=== PATIENT | male | born 1945 | race Caucasian/White ===

== ENCOUNTER → 2017-09-11 16:49 | Outpatient (CLI) | payer OTHER, SELFPAY ==
--- NOTE | 2017-09-11 16:57 | DI.RAD.S_ITS ---
PROCEDURE: XR KNEE LT 3V INDICATIONS: BILATERAL KNEE PAIN TECHNIQUE: 3 views of the knee were acquired. COMPARISON: None. FINDINGS: Bones: No fractures or dislocations. No suspicious bony lesions. Soft tissues: No joint effusion. No suspicious soft tissue calcifications. Mild chondrocalcinosis is noted involving the medial and lateral meniscus, and there is associated mild medial compartment joint width narrowing. IMPRESSION: Mild medial compartment degenerative osteoarthritis, mild chondrocalcinosis involving each meniscus. No trauma found. Dictated by: Carlos Dent M.D. on 09/12/2017 at 9:00 Approved by: Carlos Dent M.D. on 09/12/2017 at 9:02
--- NOTE | 2017-09-11 17:02 | DI.RAD.S_ITS ---
PROCEDURE: XR KNEE RT 3V INDICATIONS: BILATERAL KNEE PAIN TECHNIQUE: 3 views of the knee were acquired. COMPARISON: None. FINDINGS: Bones: No fractures or dislocations. No suspicious bony lesions. Soft tissues: No joint effusion. No suspicious soft tissue calcifications. The moderate chondrocalcinosis present it is associated with mild medial compartment joint width narrowing. IMPRESSION: No trauma found. Moderate chondrocalcinosis, medial compartment mild joint width narrowing. Dictated by: Carlos Dent M.D. on 09/12/2017 at 9:02 Approved by: Carlos Dent M.D. on 09/12/2017 at 9:03
== END ==
PROVIDERS: PCP Family Medicine; Visit Provider Family Medicine
DX: M17.0 Bilateral primary osteoarthritis of knee (principal); M11.261 Other chondrocalcinosis, right knee
CPT/HCPCS: 73562

== ENCOUNTER → 2017-10-24 10:28 | Outpatient (CLI) | payer OTHER, SELFPAY ==
--- NOTE | 2017-10-24 | DI.US.S_ITS ---
PROCEDURE: US ABD AORTA ANEURYSM SCREEN INDICATIONS: AORTA SCREENING TECHNIQUE: Real time scanning was performed of the aorta and iliac arteries, with image documentation. COMPARISON: None. FINDINGS: Aorta: Proximal aortic diameter measures 2.2 cm. Mid-aorta measures 1.9 cm. Distal aortic diameter is 1.6 cm. Iliac arteries: Right common iliac artery measures 0.8 cm. Left common iliac artery measures 0.7 cm. IMPRESSION: Negative for aneurysm. Atheromatous plaques. Dictated by: Fred Larson M.D. on 10/24/2017 at 11:33 Approved by: Fred Larson M.D. on 10/24/2017 at 11:34
== END ==
PROVIDERS: PCP Family Medicine; Visit Provider Family Medicine
DX: Z13.6 Encounter for screening for cardiovascular disorders (principal)
CPT/HCPCS: 76706

== ENCOUNTER → 2017-11-07 14:09 | Outpatient (CLI) | payer OTHER, SELFPAY ==
--- NOTE | 2017-11-07 | DI.MRI.S_ITS ---
PROCEDURE: MR LUMBAR SPINE WO CON INDICATIONS: LUMBAR SPINE PAIN TECHNIQUE: Noncontrast sagittal T1 spin echo and T2 fast echo, sagittal STIR, axial T1 and T2 fast spin echo through the lumbar spine. In cases with scoliosis, additional coronal T2 fast spin echo may be performed. COMPARISON: [facility], CR, L-SPINE 2-3 VIEWS, 01/22/2014, 13:04. [facility], CR, XR LUMBAR SPINE 2 OR 3 VIEWS, 10/24/2017, 14:49. FINDINGS: Image quality: Excellent. Alignment and Curvature: There is normal bony alignment. Bone Marrow: Marrow is of normal overall signal. No acute vertebral body compression fractures. Spinal Cord: Conus medullaris terminates at the L1 level. Visualized cord demonstrates normal signal and size. Paraspinous Soft Tissues: No paravertebral masses. L1-L2: Moderate degenerative disc disease, disc height reduction and desiccation is present but no significant facet osteoarthritis or spinal/foraminal stenosis is seen. L2-L3: The degenerative disease at this level is significantly greater, moderately severe, with an asymmetric broad-based transverse disc protrusion greater on the left than the right which extends into the posterolateral recess and neural foramen at L2-3, and tracks laterally into the paraspinous soft tissues impinging on the origin of the L3 nerve root and the course of the L2 nerve root as a transit through these areas. Moderately severe to severe nerve root impingement therefore is present, there is moderately severe left-sided spinal stenosis, mild to moderate right-sided spinal stenosis, and mild to moderate right neural foraminal stenosis. L3-L4: Degenerative disc disease is moderately severe, there is a posterior broad-based transverse disc bulge which extends into the posterolateral recess to a mild degree but also tracks into the neural foramen on the left and into the periphery, impinging on the expected course of the left L3 nerve root. Facet osteoarthritis is greater on the left than the right, with moderately severe left and mild to moderate right foraminal stenosis, and there is mild concentric spinal stenosis. L4-L5: The degenerative changes at this level are quite severe, and include disc height reduction, disc desiccation, and broad posterior transverse disc protrusion, and prominent asymmetric right greater than left facet osteoarthritis. Ligamentum flavum hypertrophy is moderate and these factors all combine to produce a severe spinal stenosis effacing CSF from the thecal sac. Asymmetric severe right and moderately severe left foraminal stenosis is present with likelihood of significant impingement greater on the right than the left on the L4 nerve root course. L5-S1: Degenerative disc disease is moderately severe to severe, with a posterior transverse broad-based disc protrusion. Facet osteoarthritis is moderately severe slightly greater on the right than the left and this results in concentric mild to moderate spinal stenosis but right greater than left severe foraminal stenosis. IMPRESSION: The degenerative changes along the lumbosacral spine are not accompanied by evidence of a disc herniation but multilevel spinal and foraminal stenosis is quite severe, generally asymmetric, and results in likelihood of significant nerve root impingement. Multilevel root arthropathy would be expected given these findings. No acute disease is found, however. Dictated by: Carlos Dent M.D. on 11/07/2017 at 16:58 Approved by: Carlos Dent M.D. on 11/07/2017 at 17:03
== END ==
PROVIDERS: PCP Family Medicine; Visit Provider Orthopaedic Surgery
DX: M51.36 Other intervertebral disc degeneration, lumbar region (principal); M99.73 Connective tissue and disc stenosis of intervertebral foramina of lumbar region
CPT/HCPCS: 72148

== ENCOUNTER 2018-01-21 10:27 | Emergency (ER) | payer OTHER, SELFPAY ==
[2018-01-21 10:30] VITALS: BP 160/70; PULSE 68; RESP 18; TEMP 36.7; O2SAT 95
--- NOTE | 2018-01-21 10:30 | ED.CHESTPAIN ---
HPI - Chest Pain General Chief Complaint: Chest Pain Stated Complaint: CHEST PAIN LAST NIGHT Time Seen by Provider: 01/21/18 10:30 Source: patient and family Mode of arrival: ambulatory Limitations: no limitations History of Present Illness HPI narrative: Patient is a 72-year-old male here for evaluation of chest pain. Patient states that the chest pain occurred last night. He was sitting on the couch when it occurred. He is unsure is exactly how long it lasted. He did describe it as a pressure on the left side. He does have tingling to his left arm. He did come to the emergency department this morning because his made him come. He was asymptomatic this morning. Related Data Home Medications Medication Instructions Recorded Confirmed allopurinol 3 tab PO BID 01/21/18 01/21/18 aspirin 81 mg PO DAILY 01/21/18 01/21/18 cholecalciferol (vitamin D3) 1,000 unit PO BID 01/21/18 01/21/18 [Vitamin D3] colchicine 0.6 mg PO DAILY PRN 01/21/18 01/21/18 etodolac 400 mg PO BID 01/21/18 01/21/18 hydrochlorothiazide 25 mg PO DAILY 01/21/18 01/21/18 metoprolol succinate 25 mg PO DAILY 01/21/18 01/21/18 omeprazole 20 mg PO DAILY 01/21/18 01/21/18 pravastatin 20 mg PO QPM 01/21/18 01/21/18 prazosin 1 mg PO BID 01/21/18 01/21/18 tadalafil 10 mg PO DAILY 01/21/18 01/21/18 Allergies Allergy/AdvReac Type Severity Reaction Status Date / Time lisinopril Allergy Intermediate Swelling Verified 01/21/18 10:42 of Lip/Tongue/Throat Bthciea-Xpy-Ulf Reductase AdvReac Intermediate Muscle Pain Verified 01/21/18 10:36 Inhibitor Review of Systems Constitutional Denies fever(s) Cardiovascular Reports chest pain, Denies diaphoresis, Denies irregular heart rhythm, Denies palpitations and Denies dyspnea Respiratory Denies dyspnea Gastrointestinal Gastrointestinal: Denies abdominal pain, Denies diarrhea, Denies nausea and Denies vomiting Genitourinary Denies dysuria Musculoskeletal Denies myalgias and Denies arthralgias Neurologic Denies behavioral changes Psychiatric Reports anxiety and Denies behavioral changes Endocrine Denies palpitations Hematologic/Lymphatic Denies easy bleeding and Denies easy bruising PFS Medical History Hyperlipidemia (Acute) Hypertension (Acute) Surgical History No pertinent past surgical history (Acute) Social History Smoking Status: Current every day smoker Exam Initial Vital Signs Initial Vital Signs: Vital Signs Temperature 98.1 F 01/21/18 10:30 Pulse Rate 68 01/21/18 10:30 Respiratory Rate 18 01/21/18 10:30 Blood Pressure 160/70 H 01/21/18 10:30 Pulse Oximetry 95 01/21/18 10:30 Const General: cooperative, healthy appearing, comfortable, well developed, well groomed and No acute distress Orientation: alert, awake and oriented x3 Resp Effort & Inspection: normal respiratory effort Auscultation: clear to auscultation bilaterally Cardio Rate: regular rate Rhythm: regular rhythm Pulses: radial pulses present GI Inspection: non-distended Palpation: soft, No firm and No tender Skin Lesions: no lesions Rashes: no rashes Neuro General: alert, awake and oriented x3 Cognition: normal cognition Speech: speech normal Extrem General: normal to inspection, capillary refill normal and No edema Psych Appearance: grossly normal and well kempt Course Orders Ordered: Discontinued Medications Aspirin (Aspirin Chew) 324 mg PO NOW ONE Stop: 01/21/18 10:31 Last Admin: 01/21/18 11:16 Dose: 324 mg MDM - Chest Pain Lab Data Attestation: I reviewed the patient's lab results. Result diagrams: 01/21/18 10:35 01/21/18 10:35 Lab Results 01/21/18 01/21/18 01/21/18 Range/Units 10:35 10:35 10:35 WBC 11.5 H (4.5-11.0) X10^3/uL RBC 5.07 (4.5-5.9) X10^6/uL Hgb 15.7 (13.5-17.5) g/dL Hct 46.0 (41-53) % MCV 90.6 (80-100) fL MCH 30.9 (26-34) PG MCHC 34.1 (30-36) % RDW 14.7 (11.6-14.8) % Plt Count 197 (150-400) X10^3/uL Neut % (Auto) 74.1 (50-75) % Lymph % (Auto) 15.9 L (25-40) % [place] % (Auto) 6.7 (3-14) % Eos % (Auto) 2.6 (2-4) % Baso % (Auto) 0.7 (0-2) % Neut # (Auto) 8500 H (1475-5970) /uL PT (10.1-12.7) SECONDS INR (0.9-1.3) APTT (26.4-36.2) SECONDS Sodium 142 (137-145) mmol/L Potassium 4.6 (3.4-5.1) mmol/L Chloride 104 (98-107) mmol/L Carbon Dioxide 28 (22-32) mmol/L BUN 22 H (9-20) mg/dL Creatinine 1.10 (0.66-1.25) mg/dL Estimated GFR > 60.0 (>60) mL/min BUN/Creatinine Ratio 20.0 (6-22) Glucose 126 H (80-110) mg/dL Calcium 9.9 (8.4-10.2) mg/dL Troponin I (0.01-0.034) ng/mL B-Natriuretic Peptide < 100.0 (<100) 01/21/18 01/21/18 01/21/18 Range/Units 10:35 10:35 13:33 WBC (4.5-11.0) X10^3/uL RBC (4.5-5.9) X10^6/uL Hgb (13.5-17.5) g/dL Hct (41-53) % MCV (80-100) fL MCH (26-34) PG MCHC (30-36) % RDW (11.6-14.8) % Plt Count (150-400) X10^3/uL Neut % (Auto) (50-75) % Lymph % (Auto) (25-40) % [place] % (Auto) (3-14) % Eos % (Auto) (2-4) % Baso % (Auto) (0-2) % Neut # (Auto) (5368-7094) /uL PT 11.8 (10.1-12.7) SECONDS INR 1.1 (0.9-1.3) APTT 39 H (26.4-36.2) SECONDS Sodium (137-145) mmol/L Potassium (3.4-5.1) mmol/L Chloride (98-107) mmol/L Carbon Dioxide (22-32) mmol/L BUN (9-20) mg/dL Creatinine (0.66-1.25) mg/dL Estimated GFR (>60) mL/min BUN/Creatinine Ratio (6-22) Glucose (80-110) mg/dL Calcium (8.4-10.2) mg/dL Troponin I < 0.012 < 0.012 (0.01-0.034) ng/mL B-Natriuretic Peptide (<100) Imaging Data Chest x-ray: Radiologist's impression: [address] [address] XRay Report Signed Patient: Rajendra Escobedo VMR#: [id number] : 5Acct:[id number] Age/Sex: 72 / MDate of Service: 01/21/18 Loc: ED Accession Number: [id number] Procedure: XR chest 1V Ordering Provider: Lee Pardo D.O. PROCEDURE: XR CHEST 1V INDICATIONS: chest pain TECHNIQUE: One view of the chest was acquired. COMPARISON: [facility], , CHEST 2 VIEW, 12/23/2008, 14:12. FINDINGS: Surgical changes and devices: None. Lungs and pleura: No pleural effusions or pneumothorax. There is mild pulmonary vascular congestion. No definite focal infiltrate. Mediastinum: Mediastinal contours appear normal. Heart size is probably enlarged. Bones and chest wall: No suspicious bony lesions. Overlying soft tissues appear unremarkable. IMPRESSION: Mild cardiomegaly and mild pulmonary vascular congestion. No focal infiltrate or pneumothorax. Dictated by: Evan Obrien M.D. on 01/21/2018 at 10:54 Approved by: Evan Obrien M.D. on 01/21/2018 at 10:54 ECG Data Attestation: I personally reviewed and interpreted this ECG as follows: Prior ECG tracings: not available for review Interpretation: Sinus rhythm Ventricular rate is 64 Normal axis Normal intervals Normal QRS Nonspecific ST T wave changes MDM Narrative Medical decision making narrative: Had a long discussion with the patient regarding his symptoms. After his 1st troponin resulted as negative and also his nonischemic EKG and normal chest x-ray I did discuss with him his options to include being admitted to the hospital for further provocative testing to include a stress test versus staying here in the emergency department for repeat troponin versus going home. The patient at that time did not want to be admitted to the hospital. I did inform him that to complete the workup he does need a stress test and admitting him to the hospital me know we can get the stress test done in a timely manner. After this discussion the patient again did not want to be admitted. He did agree to stay here in the emergency department for 2nd troponin which did come back as negative. Again I offered admission to the hospital but the patient declined. Stating that he had a trip planned to [place] at the end of the week. I did inform him that he did need to call his primary care doctor for follow-up to discuss further testing to include stress testing. He was given return precautions. His is at bedside for these conversations. He was alert and oriented x3 had a GCS of 15 in my opinion had capacity to make decisions. Both patient and his expressed understanding of the risks of going home with the risks being admitted to the hospital. They expressed understanding of the return precautions. Discharge Plan Departure Patient Disposition: Home Clinical Impression: Atypical chest pain Discharge Date/Time: 01/21/18 14:41 Interventions: ED Discharge Assessment Last Done: 01/21/18 14:39 Instructions: DI for Atypical Chest Pain Activity Restrictions/Additional Instructions: recommend that you contact your primary care doctor to discuss further workup to include the indications for another stress test. Return to the emergency department for any new or worsening symptoms Prescriptions: No Action prazosin 1 mg Capsule 1 mg PO BID RF: 0 allopurinol 100 mg Tablet 3 tab PO BID RF: 0 aspirin 81 mg Tablet,Delayed Release (Dr/Ec) 81 mg PO DAILY RF: 0 omeprazole 20 mg Capsule,Delayed Release(Dr/Ec) 20 mg PO DAILY RF: 0 etodolac 400 mg Tablet 400 mg PO BID RF: 0 pravastatin 20 mg Tablet 20 mg PO QPM RF: 0 hydrochlorothiazide 25 mg Tablet 25 mg PO DAILY RF: 0 metoprolol succinate 25 mg Tablet Extended Release 24 Hr 25 mg PO DAILY RF: 0 colchicine 0.6 mg Tablet 0.6 mg PO DAILY PRN (Reason: gout) RF: 0 cholecalciferol (vitamin D3) [Vitamin D3] 1,000 unit Capsule 1,000 unit PO BID RF: 0 tadalafil 10 mg Tablet 10 mg PO DAILY RF: 0
[2018-01-21 10:46] LABS: Add Manual Diff / Slide Review NO; Basophils Percent Auto 0.7 % (0-2); Eosinophils Percent Auto 2.6 % (2-4); Hemoglobin 15.7 g/dL (13.5-17.5); Lymphocytes Percent Auto 15.9 % (25-40); Mean Corpuscular HGB Conc 34.1 % (30-36); Mean Corpuscular Hemoglobin 30.9 PG (26-34); Mean Corpuscular Volume 90.6 fL (80-100); Monocytes Percent Auto 6.7 % (3-14); Neutrophils Absolute Auto 8500 /uL (3000-5900); Neutrophils Percent Auto 74.1 % (50-75); Platelet Count 197 X10^3/uL (150-400); Red Blood Cell Count 5.07 X10^6/uL (4.5-5.9); Red Cell Distribution Width 14.7 % (11.6-14.8); White Blood Cell Count 11.5 X10^3/uL (4.5-11.0)
[2018-01-21 10:54] LABS: INR 1.1 (0.9-1.3); Prothrombin Time 11.8 SECONDS (10.1-12.7)
[2018-01-21 10:56] LABS: Blood Urea Nitrogen 22 mg/dL (9-20); Calcium 9.9 mg/dL (8.4-10.2); Carbon Dioxide 28 mmol/L (22-32); Chloride 104 mmol/L (98-107); Estimated Glomerular Filt Rate > 60.0 mL/min (>60); Glucose 126 mg/dL (80-110); PTT Partial Thromboplastin Tim 39 SECONDS (26.4-36.2); Potassium 4.6 mmol/L (3.4-5.1); Sodium 142 mmol/L (137-145)
[2018-01-21 10:58] LABS: HEMOLYSIS 128 (0-50)
[2018-01-21 11:08] LABS: B Type Natriuretic Peptide < 100.0 (<100)
[2018-01-21 11:09] LABS: Troponin I < 0.012 ng/mL (0.01-0.034)
[2018-01-21 11:13] VITALS: BP 124/69; PULSE 60; RESP 11; O2SAT 96
[2018-01-21] MEDS: ASPIRIN 81 MG TAB 324 MG PO (11:16)
[2018-01-21 14:06] LABS: Troponin I < 0.012 ng/mL (0.01-0.034)
[2018-01-21 14:39] VITALS: BP 130/67; PULSE 70; RESP 13; O2SAT 99
== END 2018-01-21 14:41 | disposition home or self-care (01) ==
PROVIDERS: Emergency Provider Emergency Medicine; PCP Family Medicine
DX: R07.89 Other chest pain (principal)
CPT/HCPCS: 36415; 36591; 71045; 80048; 83880; 84484; 85025; 85610; 85730; 93005; 93041; 99283; 99285

== ENCOUNTER → 2018-02-28 13:15 | Outpatient (CLI) | payer OTHER, SELFPAY ==
--- NOTE | 2018-02-28 | DI.RAD.S_ITS ---
PROCEDURE: FL UPPER GI W AIR INDICATIONS: GERD COMPARISON: [facility], CR, XR CHEST 1V, 01/21/2018, 10:41. 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 No suspicious abdominal calcifications. Visualized solid organ contours appear normal. Degenerative changes noted in the thoracic and lumbar spine. Esophagus: Esophageal mucosa is normal on air-contrast views. There is mild esophageal dysmotility. No strictures, extrinsic mass effects, or diverticula. No hiatal hernia or elicited gastroesophageal reflux. There is normal transit of a calibrated barium tablet through the esophagus. Stomach: The stomach is normally distensible, with normal rugal fold thickness. No mucosal masses or ulcers. Pylorus and duodenal bulb appear normal in morphology. Duodenal folds are normal in thickness as well. IMPRESSION: 1. Mild esophageal dysmotility. 2. No gastroesophageal reflux elicited during the exam. Dictated by: Natalie Teague M.D. on 02/28/2018 at 15:22 Approved by: Natalie Teague M.D. on 02/28/2018 at 15:25
== END ==
PROVIDERS: PCP Family Medicine; Visit Provider Family Medicine
DX: K21.9 Gastro-esophageal reflux disease without esophagitis (principal); K22.4 Dyskinesia of esophagus
CPT/HCPCS: 74247

== ENCOUNTER → 2018-08-26 14:38 | Outpatient (CLI) | payer OTHER, SELFPAY ==
--- NOTE | 2018-08-26 | DI.ECHO.S_ITS ---
[place] [facility]---------+ [facility] +---------+ : : [address] : : : : [phone] : : : : Phone: [phone] Echocardiogram Report + + :Name: ROSA MARIA CHILDS V Study Date: 08/26/2018 Height: 70 in : :[facility] Weight: 233 lb : : Gender: Male BSA: 2.2 m2 : :: 1945 Age: 72 yrs BP: 130/64 mmHg: :Reason For Study: NSVT : :Ordering Physician: Sai : :Bharat Roe Performed By: Viviana Stephens : :Referring: SAI ROE : + + Interpretation Summary 1) Normal left ventricular size, thickness, wall motion, and systolic function (EF 65-70%). 2) Grossly, normal right ventricular size and function. 3) There is very mild aortic stenosis (valve area 2.0cm2, mean gradient 7.4mmHg, severity ratio 0.61). 4) Compared to the Echo done 08/12/2015, early mild aortic stenosis is present on this study. Procedure: A two-dimensional transthoracic echocardiogram with color flow and Doppler was performed. The study quality was technically difficult. Comparison is made with the echocardiogram of 08/12/15. The patient was in normal sinus rhythm during the exam. Left Ventricle: The left ventricle is normal in size, wall thickness, and systolic function without any focal wall motion abnormalities. The ejection fraction is estimated to be 65-70%. Diastolic parameters suggest a relaxation abnormality of the left ventricle, consistent with probable normal filling pressures. Right Ventricle: The right ventricle grossly appears normal in size with probable normal systolic function. Atria: The left atrium is mildly dilated. Right atrial size is normal. There is no Doppler evidence for an interatrial shunt. Mitral Valve: The mitral valve is normal. There is trace mitral regurgitation. Aortic Valve: The aortic valve is not well visualized. The aortic valve opens well. There is mild aortic stenosis. No aortic regurgitation is present. Tricuspid Valve: The tricuspid valve is normal. There is a trace or physiologic amount of tricuspid regurgitation. The right ventricular systolic pressure is estimated to be at least least 29 mmHg based on an estimated right atrial pressure of 8 mm Hg. Pulmonic Valve: The pulmonic valve is not well visualized. Great Vessels: The aortic root is normal size. The ascending aorta is normal in size. The aortic arch could not be visualized. The pulmonary is not well visualized. The IVC is dilated (diameter is greater than 2.1 cm) yet it collapses greater than 50% with a sniff. This suggests a right atrial pressure of 8 mm Hg. Pericardium/ Pleura There is no pericardial effusion. There is no pleural effusion. MMode/2D Measurements & Calculations LVIDd: 4.8 cm LVOT diam: 2.1 cm LVIDs: 2.5 cm Ao root diam: 3.0 cm FS: 48.7 % asc Aorta Diam: 3.4 cm EPSS: 0.38 cm IVSd: 0.91 cm LVPWd: 0.99 cm LV aleman. diameter/BSA (cm/m^2): 2.2 LV sys. diameter/BSA (cm/m^2): 1.1 LA A2 area: 24.9 cm2 RA long axis: 4.8 cm LA A4 area: 28.6 cm2 RA area: 14.6 cm2 LA length (vol): 6.4 cm RA vol: 37.5 ml LA vol: 95.0 ml RA : 16.8 ml/m2 LA vol index: 42.7 ml/m2 IVC diam: 2.4 cm TAPSE: 2.9 cm Doppler Measurements & Calculations Ao V2 max: 192.1 cm/sec LVOT Max Mike: 102.3 cm/sec Ao V2 mean: 127.9 cm/sec LV V1 max P.2 mmHg Ao max P.8 mmHg LV V1 VTI: 22.4 cm Ao mean P.4 mmHg DONTE(I,D): 2.0 cm2 Ao V2 VTI: 36.9 cm DONTE(V,D): 1.8 cm2 sev ratio: 0.61 DONTE indexed to BSA (cm^2/m^2): 0.90 MV E max mike: 69.7 cm/sec TR max mike: 228.4 cm/sec MV A max mike: 85.1 cm/sec TR max P.9 mmHg MV E/A: 0.82 PA V2 max: 91.2 cm/sec Med Peak E' Mike: 6.7 cm/sec PA V2 mean: 61.1 cm/sec E/E' med: 10.4 PA mean P.7 mmHg Lat Peak E' Mike: 6.8 cm/sec PA Accel Time: 0.11 sec E/E' lat: 10.2 E/e' average: 10.3 MV dec time: 0.28 sec SVJose GuadalupeWADLEY REGIONAL MEDICAL C[facility]): 74.3 ml Reading Physician:09:11 PM
--- NOTE | 2018-08-26 | DI.US.S_ITS ---
PROCEDURE: US ARTERIAL DUPLEX LE BI INDICATIONS: CLAUDICATION TECHNIQUE: Color and pulse Doppler interrogation was performed of both lower extremity arterial systems, with image documentation. COMPARISON: None. FINDINGS: Right lower extremity: Common femoral artery: 199 cm/sec, with triphasic flow. Deep femoral artery: 116 cm/sec, with biphasic flow. Proximal superficial femoral artery: 150 cm/sec, with triphasic flow. Mid superficial femoral artery: 167 cm/sec, with triphasic flow, likely indicating a slight degree of stenosis. Distal superficial femoral artery: 113 cm/sec, with triphasic flow. Popliteal artery: 103 cm/sec, with triphasic flow. Posterior tibial artery: 61-71 cm/sec, with triphasic flow. Anterior tibial artery/dorsalis pedis: 41-78 cm/sec, with biphasic flow. Beltran-scale imaging description: Mild calcific and soft plaque without areas of hemodynamically significant stenosis found. Left lower extremity: Common femoral artery: 148 cm/sec, with triphasic flow. Deep femoral artery: 250 cm/sec, with monophasic flow. Proximal superficial femoral artery: 155 cm/sec, with biphasic flow. Mid superficial femoral artery: 165 cm/sec, with biphasic flow. Distal superficial femoral artery: 95 cm/sec, with biphasic flow. Popliteal artery: 94 cm/sec, with biphasic flow. Posterior tibial artery: 50-65 cm/sec, with biphasic flow. Anterior tibial artery/dorsalis pedis: 34-57 cm/sec, with triphasic flow. Beltran-scale imaging description: The study shows mild to moderate calcific and soft plaque, without areas of significant stenosis except at the middle third of the superficial femoral artery where mild focal elevation of flow velocity is present. This is of doubtful hemodynamic significance. IMPRESSION: Mild overall atherosclerotic calcific and soft plaque with only a small degree of elevated flow velocity at the middle third of the superficial femoral arteries bilaterally. The degree of atherosclerotic narrowing is slightly greater on the left than the right but overall the patient demonstrates only mild arterial insufficiency. Dictated by: Carlos Dent M.D. on 08/26/2018 at 17:45 Approved by: Carlos Dent M.D. on 08/26/2018 at 17:50
== END ==
PROVIDERS: PCP Family Medicine; Visit Provider Internal Medicine Cardiovascular Disease
DX: I35.0 Nonrheumatic aortic (valve) stenosis (principal); I70.213 Atherosclerosis of native arteries of extremities with intermittent claudication, bilateral legs; I47.2 Ventricular tachycardia
CPT/HCPCS: 93306; 93925

== ENCOUNTER → 2018-11-20 10:39 | Outpatient (CLI) | payer OTHER, SELFPAY ==
--- NOTE | 2018-11-20 | DI.US.S_ITS ---
PROCEDURE: US CAROTID DOPPLER BI INDICATIONS: HISTORY OF CAROTID ENDARTERECTOMY TECHNIQUE: Color and pulse Doppler interrogation was performed of both carotid systems, with image documentation and velocity measurements. COMPARISON: [facility], , CAROTID ARTERY DOPPLER BILAT, 12/28/2008, 9:56. FINDINGS: Stenosis calculations are based on SRU (Society of Radiologists in Ultrasound) criteria. Right side: Brachial blood pressure: 120/61 mm Hg. Common carotid artery peak systolic velocity: 116 cm/sec. Internal carotid artery peak systolic velocity: 113 cm/sec. Internal carotid artery end diastolic velocity: 18 cm/sec. External carotid artery peak systolic velocity: 125 cm/sec. ICA/CCA peak systolic ratio: 1.0. Beltran scale imaging description: Moderate scattered plaque. Percent internal carotid artery stenosis: Less than 50% stenosis. Vertebral artery: Flow direction is antegrade. Left side: Brachial blood pressure: 119/66 mm Hg. Common carotid artery peak systolic velocity: 72 cm/sec. Internal carotid artery peak systolic velocity: 83 cm/sec. Internal carotid artery end diastolic velocity: 22 cm/sec. External carotid artery peak systolic velocity: 98 cm/sec. ICA/CCA peak systolic ratio: 1 point. Beltran scale imaging description: Moderate scattered plaque. Percent internal carotid artery stenosis: Less than 50% Vertebral artery: Flow direction is antegrade. IMPRESSION: 1. Less than 50% right internal carotid artery stenosis status post endarterectomy. 2. Stable less than 50% left internal carotid artery stenosis. Dictated by: David Allen [facility] Interpreted: Carlos Dent MD on 11/20/2018 at 14:10 Approved by: Carlos Dent M.D. on 11/20/2018 at 15:50
== END ==
PROVIDERS: PCP Family Medicine; Visit Provider Internal Medicine Cardiovascular Disease
DX: I65.23 Occlusion and stenosis of bilateral carotid arteries (principal); Z98.890 Other specified postprocedural states
CPT/HCPCS: 93880

== ENCOUNTER → 2020-04-21 09:20 | Outpatient (CLI) | payer OTHER, SELFPAY | PROVIDERS: PCP Family Medicine; Visit Provider Specialist | DX: N39.0 Urinary tract infection, site not specified (principal); R97.20 Elevated prostate specific antigen [PSA]; N40.1 Benign prostatic hyperplasia with lower urinary tract symptoms; N13.8 Other obstructive and reflux uropathy; N52.01 Erectile dysfunction due to arterial insufficiency | CPT/HCPCS: 81002; 87086; 99214 ==

== ENCOUNTER → 2021-04-27 14:01 | Outpatient (CLI) | payer OTHER, SELFPAY | PROVIDERS: PCP Family Medicine; Visit Provider Specialist | DX: C61 Malignant neoplasm of prostate (principal); N13.8 Other obstructive and reflux uropathy; R30.0 Dysuria | CPT/HCPCS: 51798; 81002; 87086; 96402; 99214; J9217 ==

== ENCOUNTER → 2021-05-13 12:24 | Outpatient (CLI) | payer MEDICARE, SELFPAY ==
--- NOTE | 2021-05-13 | DI.US.S_ITS ---
PROCEDURE: US CAROTID DOPPLER BI INDICATIONS: PVD TECHNIQUE: Color and pulse Doppler interrogation was performed of both carotid systems, with image documentation and velocity measurements. COMPARISON: [facility], , US CAROTID DOPPLER BI, 11/20/2018, 10:46. FINDINGS: Stenosis calculations are based on SRU (Society of Radiologists in Ultrasound) criteria. Right side: Brachial blood pressure: 117/50 mm Hg. Common carotid artery peak systolic velocity: 254 cm/sec. Internal carotid artery peak systolic velocity: 248 cm/sec, compared to 113 cm/sec Internal carotid artery end diastolic velocity: 29 cm/sec. External carotid artery peak systolic velocity: 122 cm/sec. ICA/CCA peak systolic ratio: 1.0 . Beltran scale imaging description: Moderate plaque at the bifurcation Percent internal carotid artery stenosis: 50-69% stenosis Vertebral artery: Flow direction is antegrade. Left side: Brachial blood pressure: 119/57 mm Hg. Common carotid artery peak systolic velocity: 83 cm/sec, compared to 83.cm/sec Internal carotid artery peak systolic velocity: 110 cm/sec. Internal carotid artery end diastolic velocity: 30 cm/sec. External carotid artery peak systolic velocity: 101 cm/sec. ICA/CCA peak systolic ratio: 1.3 . Beltran scale imaging description: Mild plaque at the bifurcation Percent internal carotid artery stenosis: 50-69% stenosis . Vertebral artery: Flow direction is antegrade. IMPRESSION: 1. 50-69% stenosis of the internal carotid arteries bilaterally markedly progressive on the right with increased internal carotid artery velocity. Dictated by: Landy Liao M.D. on 05/13/2021 at 16:34 Approved by: Landy Liao M.D. on 05/13/2021 at 16:37
== END ==
PROVIDERS: PCP Family Medicine; Referring Provider Family Medicine; Visit Provider Family Medicine
DX: I73.9 Peripheral vascular disease, unspecified (principal); I65.23 Occlusion and stenosis of bilateral carotid arteries
CPT/HCPCS: 93880

== ENCOUNTER → 2021-07-21 13:33 | Outpatient (CLI) | payer OTHER, SELFPAY | PROVIDERS: PCP Family Medicine; Visit Provider Specialist | DX: R30.0 Dysuria (principal); Z85.46 Personal history of malignant neoplasm of prostate | CPT/HCPCS: 51798; 81002; 87086; 99215 ==

== ENCOUNTER → 2021-10-06 12:27 | Outpatient (CLI) | payer MEDICARE, SELFPAY ==
[2021-10-06 14:38] LABS: Prostate Specific Antigen < 0.064 ng/mL (0.10-4.00)
== END ==
PROVIDERS: PCP Family Medicine; Referring Provider Radiology Radiation Oncology; Visit Provider Radiology Radiation Oncology
DX: C61 Malignant neoplasm of prostate (principal)
CPT/HCPCS: 36415; 84153

== ENCOUNTER → 2021-11-22 14:47 | Outpatient (CLI) | payer MEDICARE, SELFPAY | PROVIDERS: PCP Family Medicine; Visit Provider Specialist | DX: N40.1 Benign prostatic hyperplasia with lower urinary tract symptoms (principal); N13.8 Other obstructive and reflux uropathy; R30.0 Dysuria; N52.01 Erectile dysfunction due to arterial insufficiency; Z85.46 Personal history of malignant neoplasm of prostate | CPT/HCPCS: 51798; 81002; 87086; 99215 ==

== ENCOUNTER → 2022-01-10 13:27 | Outpatient (CLI) | payer MEDICARE, SELFPAY ==
--- NOTE | 2022-01-10 | DI.RAD.S_ITS ---
PROCEDURE: XR LUMBAR SPINE 2-3V INDICATIONS: Radiculopathy, lumbar region TECHNIQUE: 3 views of the lumbar spine were acquired. COMPARISON: [facility], , L-SPINE 2-3 VIEWS, 01/22/2014, 13:04. FINDINGS: Bones: 5 [id number] vertebrae are present. There is 9 millimeter retrolisthesis of L2 on L3 and 7 millimeter retrolisthesis of L3 on L4 not significantly changed from prior study. Degenerative endplate changes, loss of disc height and bilateral facet arthrosis throughout lumbar spine is seen more prominent at L4-5 and L5-S1 levels. No vertebral body compression fractures. No suspicious bony lesions. Soft tissues: Overlying bowel gas pattern is normal. No suspicious soft tissue calcifications. IMPRESSION: Moderate to severe degenerative disc disease throughout lumbar spine. No acute compression fracture . Stable retrolisthesis at L2-3 and L3-4 levels. Dictated by: Evan Obrien M.D. on 01/10/2022 at 15:56 Approved by: Evan Obrien M.D. on 01/10/2022 at 15:57
== END ==
PROVIDERS: PCP Family Medicine; Referring Provider Family Medicine; Visit Provider Family Medicine
DX: M54.16 Radiculopathy, lumbar region (principal); M51.36 Other intervertebral disc degeneration, lumbar region; M43.16 Spondylolisthesis, lumbar region
CPT/HCPCS: 72100

== ENCOUNTER → 2022-01-14 10:55 | Outpatient (CLI) | payer MEDICARE, SELFPAY ==
--- NOTE | 2022-01-14 10:57 | DI.MRI.S_ITS ---
PROCEDURE: MR LUMBAR SPINE WO CON INDICATIONS: Radiculopathy, lumbar region TECHNIQUE: Noncontrast sagittal T1 spin echo and T2 fast echo, sagittal STIR, and T2 fast spin echo through the lumbar spine. In cases with scoliosis, additional coronal T2 fast spin echo may be performed. COMPARISON: [facility], MR, MR LUMBAR SPINE WO CON, 11/07/2017, 14:30. FINDINGS: Image quality: Excellent. Alignment and Curvature: There is normal bony alignment. Bone Marrow: Marrow is of normal overall signal. No acute vertebral body compression fractures. Spinal Cord: Conus medullaris terminates at the L1 level. Visualized cord demonstrates normal signal and size. Paraspinous Soft Tissues: No paravertebral masses. T12-L1: Disc space narrowing with circumferential disc bulge and hypertrophic facet joints results in mild central and no foraminal stenosis L1-L2: Disc space narrowing with circumferential disc bulge and hypertrophic facet joints results in no central stenosis and no foraminal stenosis L2-L3: Disc space narrowing with circumferential disc bulge and hypertrophic facet joints results in moderate central stenosis. Moderate left and mild right foraminal stenosis L3-L4: Disc space narrowing with circumferential disc bulge hypertrophic facet joints noted. Dorsal and ventral epidural fat contribute to moderate central stenosis. Moderate right and severe left foraminal stenosis L4-L5: Disc space narrowing with circumferential disc bulge and hypertrophic facet joints as well as ligamentum flavum laxity all contribute to severe central stenosis. Moderate bilateral foraminal stenosis greater on the right. L5-S1: Disc space narrowing with circumferential disc bulge and superimposed right subarticular disc protrusion effaces the right lateral recess. Moderate central stenosis present. Severe right and moderate left foraminal stenosis IMPRESSION: Multilevel degenerative disc disease and arthropathy results in varying degrees of central and foraminal stenosis including severe central stenosis at L4-5 and severe foraminal stenosis at L3-4 and L5-S1 Approved by: Desmond Robertson M.D. on 01/15/2022 at 9:44
== END ==
PROVIDERS: PCP Family Medicine; Referring Provider Family Medicine; Visit Provider Family Medicine
DX: M54.16 Radiculopathy, lumbar region (principal); M48.061 Spinal stenosis, lumbar region without neurogenic claudication
CPT/HCPCS: 72148

== ENCOUNTER → 2022-03-28 11:05 | Outpatient (CLI) | payer MEDICARE, SELFPAY ==
[2022-03-28 13:12] LABS: Prostate Specific Antigen < 0.064 ng/mL (0.10-4.00)
== END ==
PROVIDERS: PCP Family Medicine; Referring Provider Specialist; Visit Provider Specialist
DX: R97.20 Elevated prostate specific antigen [PSA] (principal)
CPT/HCPCS: 36415; 84153

== ENCOUNTER → 2022-05-18 14:41 | Outpatient (CLI) | payer MEDICARE, SELFPAY ==
[2022-05-18 16:29] LABS: Prostate Specific Antigen < 0.064 ng/mL (0.10-4.00)
== END ==
PROVIDERS: PCP Family Medicine; Referring Provider Specialist; Visit Provider Specialist
DX: R97.20 Elevated prostate specific antigen [PSA] (principal)
CPT/HCPCS: 36415; 84153

== ENCOUNTER → 2022-05-23 10:52 | Outpatient (CLI) | payer MEDICARE, SELFPAY | PROVIDERS: PCP Family Medicine; Visit Provider Specialist | DX: N40.1 Benign prostatic hyperplasia with lower urinary tract symptoms (principal); N13.8 Other obstructive and reflux uropathy; R31.29 Other microscopic hematuria; R68.82 Decreased libido; Z85.46 Personal history of malignant neoplasm of prostate | CPT/HCPCS: 51798; 81002; 87086; 99214 ==

== ENCOUNTER → 2022-06-20 10:11 | Outpatient (CLI) | payer MEDICARE, SELFPAY ==
[2022-06-20 10:35] LABS: Appearance Urine UA CLEAR; Bilirubin Urine UA NEGATIVE (NEGATIVE); Color Urine UA YELLOW; Glucose Urine UA NEGATIVE (Negative); Ketones Urine UA NEGATIVE (NEGATIVE); Leukocyte Esterase Urine UA 1+ (NEGATIVE); Nitrite Urine UA NEGATIVE (Negative); Occult Blood Urine UA NEGATIVE (Negative); Protein Urine UA TRACE (Negative); Specific Gravity Urine UA >=1.030 (1.000-1.035)
[2022-06-20 10:42] LABS: Bacteria Urine None Seen; Culture Indicated Urine Specimen Cultured; Hyaline Casts Urine 1-5/LPF; RBC Urine None Seen (0-5/HPF); Squamous Epithelial Cell Urine 5-10 /HPF (0-5/HPF); WBC Urine 10-30/HPF (0-5/HPF)
== END ==
PROVIDERS: PCP Family Medicine; Referring Provider Specialist; Visit Provider Specialist
DX: R30.0 Dysuria (principal); R31.29 Other microscopic hematuria
CPT/HCPCS: 81001; 87086

== ENCOUNTER → 2022-07-31 09:50 | Outpatient (CLI) | payer MEDICARE, SELFPAY ==
--- NOTE | 2022-07-31 | DI.US.S_ITS ---
PROCEDURE: US RENAL COMPLETE INDICATIONS: FOLLOW UP RENAL CYST ON [facility] CT 06/2022 TECHNIQUE: Real-time scanning was performed of the kidneys and bladder, with image documentation. COMPARISON: [facility], CT, CT LOW DOSE LUNG CA SCREENING, 07/13/2022, 7:27. [facility], CT, CHEST/ABD/PEL WITH CONTRAST, 08/04/2015, 8:50. FINDINGS: Kidneys: Kidneys are normal in size. Right kidney measures 11.4 cm long; left kidney measures 11.7 cm long. Right renal cortical thickness is 1.7 cm; left renal cortical thickness is 1.7 cm. Renal cortical echotexture is normal. Multiple right renal cysts are visualized measuring up to 1.7 cm in size. Largest is noted in the mid right kidney. There is also a 0.8 cm echogenic focus within the inferior pole of the right kidney with associated shadowing/comet tail artifact. Findings likely represent previously seen nonobstructing renal stones on comparison CT dating back to August 04, 2015. Previously described possible hyperdense cyst in the superior pole the left kidney on comparison CT dated July 13, 2022 is not appreciated on this examination. No suspicious solid mass lesions identified in either kidney. No hydronephrosis. Bladder: Pre-void bladder volume is 28 mL. Post-void residual was not measured. Patient was not adequately prepped this examination. Miscellaneous: No free pelvic fluid. Incidental note of hepatic steatosis. IMPRESSION: 1. No acute sonographic abnormalities identified in the bilateral kidneys. 2. Redemonstration of nonobstructing inferior pole right renal stone. 3. Previously described possible upper pole left renal cyst on comparison CT is not confirmed. No evidence for suspicious renal masses seen on either side. 4. Several simple appearing right renal cysts. Dictated by: Joe Banegas M.D. on 07/31/2022 at 14:14 Approved by: Joe Banegas M.D. on 07/31/2022 at 14:22
== END ==
PROVIDERS: PCP Family Medicine; Referring Provider Family Medicine; Visit Provider Family Medicine
DX: N28.1 Cyst of kidney, acquired (principal); N20.0 Calculus of kidney
CPT/HCPCS: 76770

== ENCOUNTER → 2022-10-17 09:22 | Outpatient (CLI) | payer MEDICARE, SELFPAY ==
[2022-10-17 12:41] LABS: Prostate Specific Antigen < 0.064 ng/mL (0.10-4.00)
[2022-10-19 07:17] LABS: PSA, Total < 0.1 ng/mL (0.0-4.0)
[2022-10-20 07:12] LABS: Testosterone % Fr + Wkly bound 15.2 % (9.0-46.0); Testosterone Fr+Wkly bound 23.5 ng/dL (40.0-250.0); Testosterone, Total 154.8 ng/dL (264.0-916.0)
== END ==
PROVIDERS: PCP Family Medicine; Referring Provider Specialist; Visit Provider Specialist
DX: R97.20 Elevated prostate specific antigen [PSA] (principal); N52.01 Erectile dysfunction due to arterial insufficiency; R68.82 Decreased libido
CPT/HCPCS: 36415; 84153; 84154; 84403

== ENCOUNTER → 2022-11-01 13:15 | Outpatient (CLI) | payer MEDICARE, SELFPAY ==
[2022-11-01 14:41] LABS: Bacteria Urine Moderate (10-30); Culture Indicated Urine Specimen Cultured; RBC Urine 1-5/HPF (0-5/HPF); Squamous Epithelial Cell Urine 0-1 /HPF (0-5/HPF); WBC Urine 5-10/HPF (0-5/HPF)
[2022-11-01 15:48] LABS: Prostate Specific Antigen 0.093 ng/mL (0.10-4.00)
== END ==
PROVIDERS: PCP Family Medicine; Referring Provider Specialist; Visit Provider Specialist
DX: R31.29 Other microscopic hematuria (principal); R97.20 Elevated prostate specific antigen [PSA]; N13.8 Other obstructive and reflux uropathy; N40.1 Benign prostatic hyperplasia with lower urinary tract symptoms; Z85.46 Personal history of malignant neoplasm of prostate
CPT/HCPCS: 36415; 81015; 84153; 87086

== ENCOUNTER → 2022-12-08 12:00 | Outpatient (CLI) | payer MEDICARE, SELFPAY ==
--- NOTE | 2022-12-08 | DI.ECHO.S_ITS ---
[facility] +---------+ : : [address] [place] [address] : : : : [id number] : : : : Phone: [phone]+ Echocardiogram Report + + :Name: ROSA MARIA CHILDS V Study Date: 12/08/2022 Height: 70 in : :[facility] ReadingLocation: Weight: 230 lb : : Gender: Male BSA: 2.2 m2 : :: 1945 Age: 77 yrs BP: 134/62 mmHg: :Reason For Study: Hypertension : :Ordering Physician: SHILA, : :GLADIS Performed By: Farheen Galindo : :Referring: GLADIS FUCHS : + + Interpretation Summary 1) Normal left ventricular size, wall motion, and systolic function (EF 60- 65%). 2) Grossly, normal right ventricular size and function. 3) There is mild aortic stenosis (valve area 1.5cm2, mean gradient 13mmHg, severity ratio 0.41). 4) Compared to the Echo done 08/26/2018, mild aortic stenosis is present on this study. Recommend repeat Echo in 3 years, or earlier if clinically indicted. Procedure: A two-dimensional transthoracic echocardiogram with color flow and Doppler was performed. The study quality was technically adequate. Comparison is made with the echocardiogram of 08/26/2018. The patient was in normal sinus rhythm during the exam. Left Ventricle: The left ventricle is normal in size. There is mild concentric left ventricular hypertrophy. The ejection fraction is estimated to be 60-65%. Left ventricular systolic function appears normal without focal wall motion abnormalities. Diastolic parameters suggest a relaxation abnormality of the left ventricle, consistent with probable normal filling pressures. Right Ventricle: The right ventricle is normal in size and function. Atria: The left atrial size is normal. Right atrial size is normal. There is no Doppler evidence for an interatrial shunt. Mitral Valve: The mitral valve is normal. There is mild to moderate mitral annular calcification. There is no mitral valve stenosis. There is trace mitral regurgitation. Aortic Valve: The aortic valve is trileaflet. The aortic valve is mildly calcified. There is mild aortic stenosis. The peak aortic velocity is 2.46 m/sec. The aortic valve mean gradient is 13 mmHg. There is mild aortic regurgitation. Tricuspid Valve: The tricuspid valve is normal. There is no tricuspid stenosis. There is trace tricuspid regurgitation. The right ventricular systolic pressure is estimated to be at least 28 mmHg based on an estimated right atrial pressure of 8 mm Hg. Pulmonic Valve: The pulmonic valve is not well visualized. There is no pulmonic valvular stenosis. There is trace pulmonic regurgitation. Great Vessels: The aortic root is normal size. The ascending aorta is normal in size. The pulmonary artery is normal size. The IVC is dilated (diameter is greater than 2.1 cm) yet it collapses greater than 50% with a sniff. This suggests a right atrial pressure of 8 mm Hg. Pericardium/ Pleura There is no pericardial effusion. There is no pleural effusion. MMode/2D Measurements & Calculations LVIDd: 5.0 cm LVOT diam: 2.1 cm LVIDs: 3.4 cm Ao root diam: 2.7 cm FS: 32.0 % asc Aorta Diam: 3.1 cm IVSd: 1.2 cm LVPWd: 1.2 cm LV aleman. diameter/BSA (cm/m^2): 2.3 LV sys. diameter/BSA (cm/m^2): 1.5 LA A2 area: 23.9 cm2 RA long axis: 5.6 cm LA A4 area: 18.8 cm2 RA area: 17.2 cm2 LA length (vol): 6.1 cm RA vol: 45.0 ml LA vol: 62.7 ml RA : 20.3 ml/m2 LA vol index: 28.3 ml/m2 IVC diam: 1.3 cm RVD1 (basal): 3.8 cm LVLs ap4: 6.4 cm LVLd ap2: 8.4 cm TAPSE_phl: 2.5 cm LVLs ap2: 6.8 cm Doppler Measurements & Calculations Ao V2 max: 243.2 cm/sec LVOT Max Mike: 92.9 cm/sec Ao V2 mean: 166.0 cm/sec LV V1 max P.5 mmHg Ao max P.0 mmHg LV V1 VTI: 25.5 cm Ao mean P.8 mmHg DONTE(I,D): 1.5 cm2 Ao V2 VTI: 61.5 cm DONTE(V,D): 1.4 cm2 sev ratio: 0.41 DONTE indexed to BSA (cm^2/m^2): 0.68 MV E max mike: 104.0 cm/sec TR max mike: 225.5 cm/sec MV A max mike: 109.0 cm/sec TR max P.3 mmHg MV E/A: 0.95 PA V2 max: 130.0 cm/sec Med Peak E' Mike: 8.3 cm/sec PA V2 mean: 90.9 cm/sec E/E' med: 12.6 PA mean P.0 mmHg Lat Peak E' Mike: 9.6 cm/sec PA pr(Accel): 29.0 mmHg E/E' lat: 10.8 E/e' average: 11.7 MV dec time: 0.28 sec SV(LVOT): 92.1 ml AV VR_phl: 0.38 DONTE(VTI)/BSA_phl: 0.53 Reading Physician:02:39 PM
== END ==
PROVIDERS: PCP Family Medicine; Referring Provider Family Medicine; Visit Provider Family Medicine
DX: I35.0 Nonrheumatic aortic (valve) stenosis (principal); R06.02 Shortness of breath; I34.81 Nonrheumatic mitral (valve) annulus calcification; I10 Essential (primary) hypertension; G47.33 Obstructive sleep apnea (adult) (pediatric)
CPT/HCPCS: 93306

== ENCOUNTER → 2022-12-27 16:24 | Outpatient (CLI) | payer MEDICARE, SELFPAY ==
--- NOTE | 2022-12-27 | DI.RAD.S_ITS ---
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 COMPARISON: [facility], [facility], XR LUMBAR SPINE 2-3V, 01/10/2022, 13:34. [facility], CR, L-SPINE 2-3 VIEWS, 01/22/2014, 13:04. FINDINGS: Bones: 5 [id number] vertebrae are present. Straightening of normal lumbar lordosis with mild retrolisthesis of L2 on L3 and L3 on L4. There is multilevel facet arthropathy, worse at L4-5 and L5-S1. Multilevel disc height loss with degenerative endplate changes and spurring is present. These findings are most pronounced at L4-L5 and L5-S1. No vertebral body compression fractures. No suspicious bony lesions. Soft tissues: Overlying bowel gas pattern is normal. No suspicious soft tissue calcifications. Atherosclerotic vascular calcifications. IMPRESSION: Redemonstration of severe degenerative changes of the lumbar spine which appears progressed compared to prior. No acute compression deformities. Stable alignment. Dictated by: Pedrito Boykin M.D. on 12/27/2022 at 17:02 Approved by: Pedrito Boykin M.D. on 12/27/2022 at 17:04
== END ==
PROVIDERS: PCP Family Medicine; Referring Provider Family Medicine; Visit Provider Family Medicine
DX: M48.062 Spinal stenosis, lumbar region with neurogenic claudication (principal); M47.816 Spondylosis without myelopathy or radiculopathy, lumbar region; M47.817 Spondylosis without myelopathy or radiculopathy, lumbosacral region
CPT/HCPCS: 72100

== ENCOUNTER → 2023-01-05 12:13 | Outpatient (CLI) | payer MEDICARE, SELFPAY ==
--- NOTE | 2023-01-05 | DI.US.S_ITS ---
PROCEDURE: US CAROTID DOPPLER BI INDICATIONS: STENOSIS TECHNIQUE: Color and pulse Doppler interrogation was performed of both carotid systems, with image documentation and velocity measurements. COMPARISON: [facility], , US CAROTID DOPPLER BI, 05/13/2021, 12:50. FINDINGS: Stenosis calculations are based on SRU (Society of Radiologists in Ultrasound) criteria. Right side: Brachial blood pressure: 146/58 mm Hg. Common carotid artery peak systolic velocity: 310 cm/sec. Internal carotid artery peak systolic velocity: 201 cm/sec. Internal carotid artery end diastolic velocity: 9 cm/sec. External carotid artery peak systolic velocity: 103 cm/sec. ICA/CCA peak systolic ratio: 0.7 . Beltran scale imaging description: Atherosclerotic plaque Percent internal carotid artery stenosis: Less than 50 . Vertebral artery: Flow direction is antegrade. Left side: Brachial blood pressure: 154/73 mm Hg. Common carotid artery peak systolic velocity: 72 cm/sec. Internal carotid artery peak systolic velocity: 114 cm/sec. Internal carotid artery end diastolic velocity: 22 cm/sec. External carotid artery peak systolic velocity: 85 cm/sec. ICA/CCA peak systolic ratio: 1.6 . Beltran scale imaging description: Atherosclerotic plaque Percent internal carotid artery stenosis: Less than 50 . Vertebral artery: Flow direction is antegrade. IMPRESSION: Elevated peak systolic velocity in the right CCA suggests proximal stenosis. Consider follow-up CT angiogram head and neck. No ultrasound evidence of significant proximal ICA stenosis Approved by: Desmond Robertson M.D. on 01/05/2023 at 20:02
== END ==
PROVIDERS: PCP Family Medicine; Referring Provider Family Medicine; Visit Provider Family Medicine
DX: I65.23 Occlusion and stenosis of bilateral carotid arteries (principal)
CPT/HCPCS: 93880

== ENCOUNTER → 2023-01-22 09:42 | Outpatient (CLI) | payer MEDICARE, SELFPAY ==
[2023-01-22 10:38] LABS: Alanine Aminotransferase 19 IU/L (<50); Albumin 3.7 g/dL (3.5-5.0); Albumin Globulin Ratio 1.6 (1.0-2.8); Alkaline Phosphatase 79 U/L (38-126); Aspartate Aminotransferase 21 IU/L (17-59); BUN Creatinine Ratio 18.3 (6-22); Bilirubin Total 0.4 mg/dL (0.2-1.3); Blood Urea Nitrogen 20 mg/dL (9-20); Calcium 9.2 mg/dL (8.4-10.2); Carbon Dioxide 25 mmol/L (22-32); Chloride 108 mmol/L (98-107); Estimated Glomerular Filt Rate > 60 mL/min (>60); Globulin 2.3 g/dL (1.7-4.1); Glucose 121 mg/dL (80-110); HEMOLYSIS < 15 (0-50); Potassium 3.6 mmol/L (3.4-5.1); Sodium 140 mmol/L (137-145)
== END ==
PROVIDERS: PCP Family Medicine; Referring Provider Radiology Diagnostic Radiology; Visit Provider Radiology Diagnostic Radiology
DX: I10 Essential (primary) hypertension (principal); N18.31 Chronic kidney disease, stage 3a
CPT/HCPCS: 36415; 80053

== ENCOUNTER → 2023-01-25 10:53 | Outpatient (CLI) | payer MEDICARE, SELFPAY ==
--- NOTE | 2023-01-25 | DI.MRI.S_ITS ---
PROCEDURE: MR LUMBAR SPINE WO CON INDICATIONS: Spinal stenosis of lumbar region TECHNIQUE: Noncontrast sagittal T1 spin echo and T2 fast echo, sagittal STIR, and T2 fast spin echo through the lumbar spine. In cases with scoliosis, additional coronal T2 fast spin echo may be performed. COMPARISON: [facility], MR, MR LUMBAR SPINE WO CON, 01/14/2022, 11:17. FINDINGS: Image quality: Excellent. Alignment and Curvature: There is normal bony alignment. Bone Marrow: Chronic degenerative endplate changes noted Spinal Cord: Conus medullaris terminates at the L1 level. Visualized cord demonstrates normal signal and size. Paraspinous Soft Tissues: No paravertebral masses. T12-L1: Disc space narrowing with circumferential disc bulge and hypertrophic facet joints results in mild central stenosis no foraminal stenosis L1-L2: Disc space narrowing present. No central or foraminal stenosis. L2-L3: Disc space narrowing with circumferential disc bulge and hypertrophic facet joints results in moderate central stenosis. Moderate left and mild right foraminal stenosis. L3-L4: Disc space narrowing with hypertrophic facet joints, circumferential disc bulge and ligamentum flavum laxity combined result in moderate central stenosis. Severe left and moderate to severe right foraminal stenosis L4-L5: Disc space narrowing, hypertrophic facet joints and ligamentum flavum laxity combined result in severe central stenosis. Moderate left and severe right foraminal stenosis. L5-S1: Disc space narrowing and circumferential disc bulge noted. Mild central stenosis. Severe right and moderate left foraminal stenosis IMPRESSION: Multilevel degenerative disc disease and arthropathy resulting in varying degrees of central and foraminal stenosis including severe central stenosis L4-5 and moderate central stenosis L3-4, stable from the prior Approved by: Desmond Robertson M.D. on 01/25/2023 at 14:23
--- NOTE | 2023-01-25 | DI.CT.S_ITS ---
PROCEDURE: CT ANGIO HEAD AND NECK INDICATIONS: occlusion and stenosis of carotid arteries TECHNIQUE: After the administration of intravenous contrast, 1 mm thick sections acquired from the aortic arch through the [place] of [place]. 3-dimensional jppwnnm-jbqwdjoem-xfoqtfqyjv (MIP) and/or volume rendering reformats were acquired of the central intracranial vasculature and neck separately. For radiation dose reduction, the following was used: automated exposure control, adjustment of mA and/or kV according to patient size. COMPARISON: [facility], , ANGIOGRAM NECK WITH CONTRAST, 06/01/2008, 10:09. [facility], , US CAROTID DOPPLER BI, 05/13/2021, 12:50. [facility], , CAROTID DOPPLER BI, 11/20/2018, 10:46. [facility], CAROTID DOPPLER BI, 01/05/2023, 12:16. FINDINGS: Image quality: Diagnostic. BRAIN: CSF spaces: Ventricles are normal in size and shape. Basal cisterns are patent. No extra-axial fluid collections. Brain: No significant abnormality of the brain can be seen. Skull and face: Calvarium and facial bones appear intact, without suspicious lesions. Orbits appear normal. Sinuses: Sinuses and mastoids are clear. HEAD CT ANGIOGRAPHY: Anterior circulation: Intracranial internal carotid arteries are normal in size and flow. There is a diminutive right A1 segment, with a corresponding robust left A1 segment. This is considered to be a normal developmental variant of the [place] of [place], of typically no clinical consequence. The flow within the paired anterior cerebral arteries is otherwise normal and symmetric. The flow within the middle cerebral arteries is normal and symmetric. The anterior communicating artery is seen. No aneurysms are seen. Posterior circulation: Areas of atherosclerotic calcification can be seen involving the V4 segments. No hemodynamically significant stenosis can be seen on the left. On the right, there is 50-60% V4 stenosis. There is a normal appearing basilar artery. Flow within the posterior cerebral arteries is normal and symmetric. No aneurysms are seen. NECK CT ANGIOGRAPHY: Carotid system: Incidental note is made of a common origin of the right brachiocephalic artery and the left common carotid artery (bovine type arch). This is considered to be a developmental variant of no clinical consequence. The origins of the common carotid arteries appear patent. There is a mild apparent focal dissection seen involving the right distal right common carotid artery region. The common carotid arteries demonstrate normal caliber and courses. The bifurcation regions demonstrate atherosclerotic irregularity, with hard and soft plaque. There is an approximately 70% stenosis seen involving the right proximal internal carotid artery. On the left, there is approximately 50% stenosis seen involving the left proximal internal carotid artery. The more distal internal carotid arteries demonstrate normal course and caliber. Posterior circulation: The origins of the vertebral arteries both appear widely patent. The more superior extracranial portions of both vertebral arteries also demonstrate normal courses and calibers. They join to form a normal appearing basilar artery. Soft tissues: Visualized neck soft tissues demonstrate no suspicious abnormalities. Bones: No suspicious bony lesions. Visualized cervical spine appears normally aligned. Moderate cervical spine degenerative changes are seen, which are worst inferiorly. 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 There is and approximately 70% stenosis seen involving the right proximal internal carotid artery. 50-60% right V4 stenosis. Additional findings: Xqqctm-im-Whwxqi developmental anomalies Bovine type aortic branching pattern Any quantitative measurements of stenosis were performed using NASCET criteria. Dictated by: Isauro Daigle M.D. on 01/25/2023 at 11:27 Approved by: Isauro Daigle M.D. on 01/25/2023 at 11:34
== END ==
PROVIDERS: PCP Family Medicine; Referring Provider Family Medicine; Visit Provider Family Medicine
DX: I65.23 Occlusion and stenosis of bilateral carotid arteries (principal); M48.062 Spinal stenosis, lumbar region with neurogenic claudication; M48.8X6 Other specified spondylopathies, lumbar region; M51.36 Other intervertebral disc degeneration, lumbar region; M47.816 Spondylosis without myelopathy or radiculopathy, lumbar region; M51.37 Other intervertebral disc degeneration, lumbosacral region; M48.07 Spinal stenosis, lumbosacral region
CPT/HCPCS: 70496; 70498; 72148; Q9967

== ENCOUNTER → 2023-04-26 13:08 | Outpatient (CLI) | payer MEDICARE, SELFPAY | PROVIDERS: PCP Family Medicine; Referring Provider Specialist; Visit Provider Specialist | DX: C61 Malignant neoplasm of prostate (principal); R97.20 Elevated prostate specific antigen [PSA] | CPT/HCPCS: 36415; 84153 ==

== ENCOUNTER → 2023-07-17 16:12 | Outpatient (ROUT) | payer MEDICARE, SELFPAY ==
[2023-07-17 16:55] LABS: Influenza A - CEPHEID Flu A NEGATIVE (NEGATIVE); Influenza B - CEPHEID Flu B NEGATIVE (NEGATIVE); Respiratory Syncytial Virus Negative (Negative)
[2023-07-17 16:59] LABS: COVID-19 CEPHEID 4-PLEX PCR POSITIVE (Negative)
== END ==
PROVIDERS: PCP Family Medicine; Visit Provider Family Medicine
DX: R05.1 Acute cough (principal); R52 Pain, unspecified
CPT/HCPCS: 0241U

== ENCOUNTER → 2023-11-13 15:01 | Outpatient (CLI) | payer MEDICARE, SELFPAY ==
[2023-11-13 16:55] LABS: Prostate Specific Antigen 0.119 ng/mL (0.10-4.00)
== END ==
PROVIDERS: PCP Family Medicine; Referring Provider Specialist; Visit Provider Specialist
DX: C61 Malignant neoplasm of prostate (principal); R39.9 Unspecified symptoms and signs involving the genitourinary system; N40.1 Benign prostatic hyperplasia with lower urinary tract symptoms; N13.8 Other obstructive and reflux uropathy; R97.20 Elevated prostate specific antigen [PSA]
CPT/HCPCS: 36415; 84153

== ENCOUNTER → 2024-04-15 10:01 | Outpatient (CLI) | payer MEDICARE, SELFPAY ==
[2024-04-15 11:52] LABS: Prostate Specific Antigen < 0.064 ng/mL (0.10-4.00)
== END ==
PROVIDERS: PCP Family Medicine; Referring Provider Urology; Visit Provider Urology
DX: R97.20 Elevated prostate specific antigen [PSA] (principal)
CPT/HCPCS: 36415; 84153

== ENCOUNTER → 2024-11-05 10:15 | Outpatient (CLI) | payer MEDICARE, SELFPAY ==
[2024-11-05 12:35] LABS: Prostate Specific Antigen < 0.064 ng/mL (0.10-4.00)
== END ==
PROVIDERS: PCP Family Medicine; Referring Provider Urology; Visit Provider Urology
DX: C61 Malignant neoplasm of prostate (principal)
CPT/HCPCS: 36415; 84153

== ENCOUNTER → 2024-11-18 17:45 | Outpatient (ROUT) | payer MEDICARE, SELFPAY | LOC: LAB 17:45 | PROVIDERS: PCP Family Medicine; Visit Provider Dermatology | DX: D48.5 Neoplasm of uncertain behavior of skin (principal) | CPT/HCPCS: 87070; 87075; 87205 ==

== ENCOUNTER 2025-03-15 15:17 | Observation (INO) | payer MEDICARE, SELFPAY ==
[2025-03-15] VITALS (12 sets, daily range): BP systolic 171–222; BP diastolic 59–107; PULSE 55–90; RESP 13–23; TEMP 36.1–36.2; O2SAT 96–99; BMI 31.4
--- NOTE | 2025-03-15 15:31 | DI.CT.S_ITS ---
PROCEDURE: CT STROKE INDICATIONS: Speech difficulty TECHNIQUE: Noncontrast 4.5 mm thick angled axial sections acquired from the foramen magnum to the vertex, with coronal reformats. For radiation dose reduction, the following was used: automated exposure control, adjustment of mA and/or kV according to patient size. COMPARISON: None. FINDINGS: Image quality: Diagnostic. CSF spaces: Basal cisterns are patent. No extra-axial fluid collections. Ventricles are normal in size and shape. Brain: No midline shift. No intracranial mass effect or hemorrhage. Beltran- white matter interface is normal. A few periventricular white matter hypodensities suggestive of chronic microvascular ischemic disease. Skull and face: Calvarium and visualized facial bones are intact, without suspicious lesions. Sinuses: Visualized sinuses and mastoids are clear. IMPRESSION: No intracranial hemorrhage. Sequela of presumed microvascular ischemic disease. Dr. Solorzano discussed the above findings with the ordering provider at 2:48 p.m. [place] time This study fulfills neurological imaging criteria for inclusion or exclusion of acute stroke therapies based on available published neurological imaging guidelines. Dictated by: J Luis Solorzano M.D. on 03/15/2025 at 14:46 Approved by: J Luis Solorzano M.D. on 03/15/2025 at 14:50
--- NOTE | 2025-03-15 15:31 | DI.CT.S_ITS ---
PROCEDURE: CT ANGIO HEAD AND NECK INDICATIONS: Speech difficulty TECHNIQUE: After the administration of intravenous contrast, 1 mm thick sections acquired from the aortic arch through the [place] of [place]. 3-dimensional lufvdwg-bdndtxaob-joovvxssia (MIP) and/or volume rendering reformats were acquired of the central intracranial vasculature and neck separately. For radiation dose reduction, the following was used: automated exposure control, adjustment of mA and/or kV according to patient size. COMPARISON: [facility], CT, CT ANGIO HEAD AND NECK, 01/25/2023, 11:06. FINDINGS: Image quality: Diagnostic. Cerebral CT Angiogram: Internal carotid arteries: No acute findings. Calcific atherosclerotic disease of the petrosal supraclinoid ICAs. Intracranial ICA are patent with no significant stenosis. No occlusion. No aneurysm. Anterior cerebral arteries: Unremarkable. No significant stenosis. No occlusion. No aneurysm. Middle cerebral arteries: Unremarkable. No significant stenosis. No occlusion. No aneurysm. Posterior cerebral arteries: Unremarkable. No significant stenosis. No occlusion. No aneurysm. Basilar artery: Unremarkable. No significant stenosis. No occlusion. No aneurysm. Vertebral arteries: Unremarkable as visualized. Dural venous sinuses: Unremarkable given phase of enhancement. Other: Arterial phase appearance of the brain parenchyma is unremarkable. Neck CT Angiogram: Internal carotid arteries: Calcific atherosclerotic disease at the carotid bulb and takeoff of the internal carotid artery resulting in 54% stenosis of the left internal carotid artery and 25% stenosis of the right internal carotid artery. No significant stenosis. No dissection or occlusion. Common carotid arteries: At the takeoff of the right internal carotid artery there is a small dissection flap, unchanged from comparison best seen on image 263 of series 4. No significant stenosis. No dissection or occlusion. External carotid arteries: Unremarkable. No occlusion. Vertebral arteries: Unremarkable. No significant stenosis. No dissection or occlusion. Aortic Arch and Mediastinum: Partially visualized aortic arch unremarkable without evidence of aneurysm. Origins of the great vessels unremarkable. Other: Arterial phase soft tissues of the neck and chest are unremarkable. IMPRESSION: Unchanged chest external flap of the right distal common carotid artery. 54% stenosis of the takeoff of the left internal carotid artery 25% stenosis of the takeoff of the right internal carotid artery No large vessel occlusion or aneurysm. Any quantitative measurements of stenosis were performed using NASCET criteria. Dictated by: J Luis Solorzano M.D. on 03/15/2025 at 15:03 Approved by: J Luis Solorzano M.D. on 03/15/2025 at 15:13
[2025-03-15 15:54] LABS: Add Manual Diff / Slide Review NO; Hematocrit 40.2 % (41-53); Hemoglobin 13.9 g/dL (13.5-17.5); Lymphocytes Absolute Auto 1100 /uL (1100-4500); Mean Corpuscular HGB Conc 34.6 % (30-36); Mean Corpuscular Hemoglobin 29.1 PG (26-34); Mean Corpuscular Volume 84.0 fL (80-100); Platelet Count 193 X10^3/uL (150-400)
--- NOTE | 2025-03-15 15:57 | ED_ITS ---
HPI - Neuro Symptoms/Deficit General Chief Complaint: Neuro Symptoms/Deficit Stated Complaint: Speech drifting Time Seen by Provider: 03/15/25 15:31 Source: patient Mode of arrival: Ambulatory History of Present Illness HPI Narrative: Patient is an 79-year-old male history of hypertension hyperlipidemia coronary artery disease gout presenting today with slurring of speech. Last known well is on known but seems to be some time today. Possibly this afternoon. Son noticed it this afternoon around 130pm his says it started sometime today last night he was within normal limits. Son has noticed improvement in his speech. He says that he really had a hard time finishing sentences had a hard time coming up with words no slurring of speech no facial droop no other focal deficits. He has noticed complete turnaround in his now back to his self. He has no known history of CVA. On Anticoagulants: No Related Data Home Medications ?Medication ?Instructions ?Recorded ?Confirmed cholecalciferol (vitamin D3) 25 1,000 unit PO BID 12/3003/02/25 mcg (1,000 unit) capsule (Vitamin D3) omeprazole 20 mg capsule,delayed 20 mg PO DAILY 03/02/25 release fluoxetine 10 mg capsule 10 mg PO DAILY 04/16/2007/22 gabapentin 300 mg capsule 300 mg PO TID 04/16/2003/02 nitroglycerin 0.4 mg sublingual 0.4 mg sublingual Q5M PRN 04/21/20 03/02/25 tablet (Nitrostat) colchicine 0.6 mg tablet 0.6 mg PO BID PRN gout 01/0503/02/25 lorazepam 0.5 mg tablet 0.5 - 1 mg PO Q8H PRN 03/02/25 rosuvastatin 10 mg tablet 10 mg PO DAILY 01/05/2107/22 allopurinol 100 mg tablet 300 mg PO BID 11/22/2103/02 metoprolol succinate 25 mg 75 mg PO DAILY 11/07/2207/22 tablet,extended release 24 hr tadalafil 10 mg tablet 10 mg PO DAILY PRN 11/19/23 11/12/24 finasteride 5 mg tablet 5 mg PO DAILY 02/14/2403/02 ferrous sulfate 325 mg (65 mg 325 mg PO DAILY 03/02/25 03/02/25 iron) tablet,delayed release omeprazole 40 mg capsule,delayed mg PO 03/02/25 release Previous Rx's ?Medication ?Instructions ?Recorded tolterodine 4 mg capsule,extended 4 mg PO DAILY #90 ca ps 02/14/24 release 24 hr Myrbetriq 50 mg tablet,extended 50 mg PO DAILY #90 tab s 01/07/25 release (mirabegron) sodium,potassium,mag sulfates 17.5 See Rx Instructions PO .COMPLEX 03/06/25 gram-3.13 gram-1.6 gram oral soln #354 mL (Suprep Bowel Prep Kit) Allergies Allergy/AdvReac Type Severity Reaction Status Date / Time lisinopril Allergy Intermediate Swelling Verified 03/15/25 15:20 of Lip/Tongue/Throat Qbkwbuf-EKL-WhL Reductase AdvReac Intermediate Muscle Pain Verified 03/15/25 15:20 Inhibitor (Vfvpfxj-Gdw-Qoh Reductase Inhibitor) Review of Systems Hematologic/Lymphatic On Anticoagulants: No Patient History Medical History Urge incontinence Lower urinary tract symptoms (LUTS) Low libido Microscopic hematuria History of malignant neoplasm of prostate Prostate cancer Erectile dysfunction due to arterial insufficiency BPH w urinary obs/LUTS Elevated PSA Rheumatoid arthritis Kidney stones Inflammatory bowel diseases (IBD) Gout Depression Chest pain Hyperlipidemia Hypertension Surgical History No pertinent past surgical history Family History Mother Coronary artery disease Hyperlipidemia Hypertension Father Hearing impairment Inflammatory bowel disease Renal failure Social History marital status: number of children: 2 household members: spouse Tobacco: How many years used: 55 alcohol intake: former caffeine: Yes Smoking Status: Current every day smoker alcohol intake frequency: other Exam Initial Vital Signs Initial Vital Signs: Vital Signs Temperature 97.0 F L 03/15/25 15:20 Pulse Rate 58 L 03/15/25 15:20 Respiratory Rate 18 03/15/25 15:20 Blood Pressure 208/87 H 03/15/25 15:20 Pulse Oximetry 99 03/15/25 15:20 Oxygen Delivery Method Room Air 03/15/25 15:20 GENERAL: Alert pleasant 79-year-old male and in no acute distress. HEENT: Head atraumatic,EOMI, pupils reactive, face symmetric, moist mucous membranes CARDIOVASCULAR: Regular rate and rhythm without murmurs, rubs or gallops. RESPIRATORY: Breath sounds equal bilaterally, no wheezes rales or rhonchi. ABDOMEN: Soft, nontender. Normoactive bowel sounds all 4 quadrants. No guarding or rebound. EXTREMITIES: Normal range of motion, no clubbing or edema. Neurovascularly intact NEUROLOGICAL: Alert and oriented x4.Normal gait and speech. Cranial nerves II through XII grossly intact. Good bcglws-kz-utzp, good nuad-zu-aicr, strength equal bilaterally, no dysarthria or aphasia, sensation in tact to soft touch bilaterally, no visual changes, no facial droop SKIN: Warm, dry, no laceration, no petechiae, no rashes or lesions. Scores NIH Stroke Scale Level of Conciousness: Alert, keenly responsive Ask month/age: Answers both questions correctly. Open/close eyes, close hand: Performs both tasks correctly Best gaze horizontal: Normal Visual angulo: No visual loss Facial palsy: Normal symetrical movement Left arm drift: No drift for full 10 sec Right arm drift: No drift for full 10 sec Left leg drift: No drift for full 5 sec Right leg drift: No drift for full 5 sec Limb ataxia: Absent Sensory on face/arms/legs: Normal, no sensory loss Best language: No aphasia, normal Dysarthria: Normal Extinction or inattention: No abnormality Total NIH Stroke scale score: 0 Course Orders Ordered: ED Orders 03/15/25 15:[address] angio head and neck Stat COVID19 -Nasal RAPID Stat EKG-12 Lead Stat 03/15/25 15:38 Complete Blood Count AUTO DIFF Stat Comprehensive Metabolic Panel Stat Ethanol (ETOH) Stat PTT Partial Thromboplastin Sanjiv Stat Prothrombin Time INR Stat Troponin & CK Cardiac Panel Stat 03/15/25 16:00 Urinalysis and Microscopic Stat Urine Drug Screen, Rapid Stat 03/15/25 16:56 MR head/brain wo con Stat Acetaminophen (Acetaminophen 325 Mg Tablet) 650 mg PO Q6H PRN PRN Reason: Fever/Mild Pain (1-3) Hydrocodone Bitart/Acetaminophen (Hydrocodone/Acet 5/325 Tablet) 1 tab PO Q4H PRN PRN Reason: Pain, Moderate (4-6) Aspirin (Aspirin Ec 325 Mg Tablet) 325 mg PO DAILY PENDING SALE TO [facility] Calcium Carbonate (Calcium Carbonate 500 Mg Tab) 1,000 mg PO Q4HR PRN PRN Reason: Dyspepsia Enoxaparin Sodium (Enoxaparin 40 Mg/0.4 Ml Syringe) 40 mg SUBCUT DAILY PENDING SALE TO [facility] Fluoxetine HCl (Fluoxetine 10 Mg Capsule) 10 mg PO DAILY PENDING SALE TO [facility] Gabapentin (Gabapentin 600 Mg Tablet) 600 mg PO BEDTIME PENDING SALE TO [facility] Gabapentin (Gabapentin 300 Mg Capsule) 300 mg PO DAILY PENDING SALE TO [facility] Lorazepam (Lorazepam 0.5 Mg Tablet) 0.5 mg PO Q6HR PRN PRN Reason: Anxiety Metoprolol Succinate (Metoprolol Er 25 Mg Tablet) 25 mg PO BID PENDING SALE TO [facility] Naloxone HCl (Naloxone 0.4 Mg/Ml Vial) 0.2 mg IV Q2MIN PRN PRN Reason: Opiate Reversal Ondansetron HCl (Ondansetron 4 Mg/2 Ml Inj) 4 mg IV Q8HR PRN PRN Reason: Nausea And Vomiting Pantoprazole Sodium (Pantoprazole Dr 40 Mg Tablet) 40 mg PO 0700 PENDING SALE TO [facility] Tamsulosin HCl (Tamsulosin 0.4 Mg Capsule) 0.4 mg PO DAILY PENDING SALE TO [facility] Discontinued Medications Aspirin (Aspirin 81 Mg Chew Tab) 324 mg PO NOW ONE Stop: 03/15/25 16:27 Last Admin: 03/15/25 16:39 Dose: 162 mg Vital Signs Vital signs: Vital Signs - 8 hr 03/15/25 15:20 03/15/25 16:25 03/15/25 16:27 Temperature 97.0 F L Pulse Rate 58 L 62 Respiratory Rate 18 23 Blood Pressure 208/87 H 209/86 H Pulse Oximetry 99 96 Oxygen Delivery Method Room Air 03/15/25 16:27 03/15/25 16:30 03/15/25 16:30 Temperature Pulse Rate 62 63 Respiratory Rate 22 19 Blood Pressure 192/81 H Pulse Oximetry 97 97 Oxygen Delivery Method 03/15/25 16:46 03/15/25 16:46 03/15/25 17:00 Temperature Pulse Rate 55 L Respiratory Rate 13 Blood Pressure 194/107 H 194/82 H Pulse Oximetry 96 Oxygen Delivery Method 03/15/25 17:00 Temperature Pulse Rate 56 L Respiratory Rate 14 Blood Pressure Pulse Oximetry 97 Oxygen Delivery Method MDM - Neuro Symptoms/Deficit Lab Data 03/15/25 15:38 03/15/25 15:38 Labs: Lab Results 03/15/25 03/15/25 03/15/25 Range/Units 15:38 15:41 16:00 WBC 7.5 (4.5-11.0) X10^3/uL RBC 4.79 (4.5-5.9) X10^6/uL Hgb 13.9 (13.5-17.5) g/dL Hct 40.2 L (41-53) % MCV 84.0 (80-100) fL MCH 29.1 (26-34) PG MCHC 34.6 (30-36) % RDW 16.1 H (11.6-14.8) % Plt Count 193 (150-400) X10^3/uL Neut % (Auto) 74.0 (50-75) % Lymph % (Auto) 14.6 L (25-40) % [place] % (Auto) 8.5 (3-14) % Eos % (Auto) 1.8 L (2-4) % Baso % (Auto) 1.1 (0-2) % Neut # (Auto) 5500 (8896-6738) /uL Lymph # (Auto) 1100 (8090-8229) /uL [place] # (Auto) 600 (0-900) /uL Eos # (Auto) 100 (0-450) /uL Baso # (Auto) 100 (0-100) /uL PT 13.2 H (9.4-12.5) SECONDS INR 1.2 (0.9-1.3) APTT 39 H (25.1-36.5) SECONDS Sodium 140 (137-145) mmol/L Potassium 4.0 (3.4-5.1) mmol/L Chloride 102 (98-107) mmol/L Carbon Dioxide 30 (22-32) mmol/L BUN 15 (9-20) mg/dL Creatinine 0.94 (0.66-1.25) mg/dL Estimated GFR > 60 (>60) mL/min BUN/Creatinine Ratio 16.0 (6-22) Glucose 100 H (70-99) mg/dL POC Whole Bld Glucose 100 H (70-99) mg/dL Calcium 9.6 (8.4-10.2) mg/dL Total Bilirubin 0.7 (0.2-1.3) mg/dL AST 25 (17-59) IU/L ALT 16 (<50) IU/L Alkaline Phosphatase 76 (38-126) U/L Total Creatine Kinase 97 (55-170) U/L Troponin I 0.012 (0.01-0.034) ng/mL Total Protein 7.4 (6.3-8.2) g/dL Albumin 4.5 (3.5-5.0) g/dL Globulin 2.9 (1.7-4.1) g/dL Albumin/Globulin Ratio 1.6 (1.0-2.8) Urine Color Yellow Urine Appearance Clear Urine pH 7.5 (4.5-8.0) Ur Specific [place] 1.020 (1.000-1.035) Urine Protein 3+ H (Negative) Urine Glucose (UA) Negative (Negative) g/dL Urine Ketones Negative (NEGATIVE) Urine Occult Blood Trace-intact (Negative) Urine Nitrate Negative (Negative) Urine Bilirubin Negative (NEGATIVE) Urine Urobilinogen 2.0 H (0.2) E.U./dL Ur Leukocyte Esterase Negative (NEGATIVE) Urine RBC 0-1/hpf (0-5/HPF) Urine WBC None seen (0-5/HPF) Ur Squamous Epith Cells None seen (0-5/HPF) Urine Bacteria None seen (None) Ur Culture Indicated? Cult not indicated Vol Urine Centrifuged 10ml (spun) U Opiates 300ng/mL cut Negative (Negative) Ur Oxycodone Screen Negative (Negative) Urine Methadone Screen Negative (Negative) Ur Barbiturates Screen Negative (Negative) U Tricyclic Antidepress Negative (Negative) Ur Phencyclidine Scrn Negative (Negative) Ur Amphetamines Screen Negative (Negative) U Methamphetamines Scrn Negative (Negative) Ur MDMA Scrn (Ecstasy) Negative (Negative) U Benzodiazepines Scrn Negative (Negative) Urine Cocaine Screen Negative (Negative) U Marijuana (THC) Screen Negative (Negative) Urine Specific [place] (Normal) Ethyl Alcohol < 10 (<10) mg/dL Ur Creatinine (Normal) 03/15/25 Range/Units 16:00 WBC (4.5-11.0) X10^3/uL RBC (4.5-5.9) X10^6/uL Hgb (13.5-17.5) g/dL Hct (41-53) % MCV (80-100) fL MCH (26-34) PG MCHC (30-36) % RDW (11.6-14.8) % Plt Count (150-400) X10^3/uL Neut % (Auto) (50-75) % Lymph % (Auto) (25-40) % [place] % (Auto) (3-14) % Eos % (Auto) (2-4) % Baso % (Auto) (0-2) % Neut # (Auto) (0937-3402) /uL Lymph # (Auto) (4004-1473) /uL [place] # (Auto) (0-900) /uL Eos # (Auto) (0-450) /uL Baso # (Auto) (0-100) /uL PT (9.4-12.5) SECONDS INR (0.9-1.3) APTT (25.1-36.5) SECONDS Sodium (137-145) mmol/L Potassium (3.4-5.1) mmol/L Chloride (98-107) mmol/L Carbon Dioxide (22-32) mmol/L BUN (9-20) mg/dL Creatinine (0.66-1.25) mg/dL Estimated GFR (>60) mL/min BUN/Creatinine Ratio (6-22) Glucose (70-99) mg/dL POC Whole Bld Glucose (70-99) mg/dL Calcium (8.4-10.2) mg/dL Total Bilirubin (0.2-1.3) mg/dL AST (17-59) IU/L ALT (<50) IU/L Alkaline Phosphatase (38-126) U/L Total Creatine Kinase (55-170) U/L Troponin I (0.01-0.034) ng/mL Total Protein (6.3-8.2) g/dL Albumin (3.5-5.0) g/dL Globulin (1.7-4.1) g/dL Albumin/Globulin Ratio (1.0-2.8) Urine Color Urine Appearance Urine pH Normal (4.5-8.0) Ur Specific [place] (1.000-1.035) Urine Protein (Negative) Urine Glucose (UA) (Negative) g/dL Urine Ketones (NEGATIVE) Urine Occult Blood (Negative) Urine Nitrate (Negative) Urine Bilirubin (NEGATIVE) Urine Urobilinogen (0.2) E.U./dL Ur Leukocyte Esterase (NEGATIVE) Urine RBC (0-5/HPF) Urine WBC (0-5/HPF) Ur Squamous Epith Cells (0-5/HPF) Urine Bacteria (None) Ur Culture Indicated? Vol Urine Centrifuged U Opiates 300ng/mL cut (Negative) Ur Oxycodone Screen (Negative) Urine Methadone Screen (Negative) Ur Barbiturates Screen (Negative) U Tricyclic Antidepress (Negative) Ur Phencyclidine Scrn (Negative) Ur Amphetamines Screen (Negative) U Methamphetamines Scrn (Negative) Ur MDMA Scrn (Ecstasy) (Negative) U Benzodiazepines Scrn (Negative) Urine Cocaine Screen (Negative) U Marijuana (THC) Screen (Negative) Urine Specific [place] Normal (Normal) Ethyl Alcohol (<10) mg/dL Ur Creatinine Normal (Normal) Imaging Data CT scan - head: Radiologist's Impression: PROCEDURE: CT STROKE INDICATIONS: Speech difficulty TECHNIQUE: Noncontrast 4.5 mm thick angled axial sections acquired from the foramen magnum to the vertex, with coronal reformats. For radiation dose reduction, the following was used: automated exposure control, adjustment of mA and/or kV according to patient size. COMPARISON: None. FINDINGS: Image quality: Diagnostic. CSF spaces: Basal cisterns are patent. No extra-axial fluid collections. Ventricles are normal in size and shape. Brain: No midline shift. No intracranial mass effect or hemorrhage. [place]- white matter interface is normal. A few periventricular white matter hypodensities suggestive of chronic microvascular ischemic disease. Skull and face: Calvarium and visualized facial bones are intact, without suspicious lesions. Sinuses: Visualized sinuses and mastoids are clear. IMPRESSION: No intracranial hemorrhage. Sequela of presumed microvascular ischemic disease. Dr. Solorzano discussed the above findings with the ordering provider at 2:48 p.m. [place] time This study fulfills neurological imaging criteria for inclusion or exclusion of acute stroke therapies based on available published neurological imaging guidelines. Dictated by: J Luis Solorzano M.D. on 03/15/2025 at 14:46 CTA - brain/neck: Radiologist's Impression: PROCEDURE: CT ANGIO HEAD AND NECK INDICATIONS: Speech difficulty TECHNIQUE: After the administration of intravenous contrast, 1 mm thick sections acquired from the aortic arch through the [place] of [place]. 3-dimensional palcwpp-jubpfvcuy-kcblypzqsv (MIP) and/or volume rendering reformats were acquired of the central intracranial vasculature and neck separately. For radiation dose reduction, the following was used: automated exposure control, adjustment of mA and/or kV according to patient size. COMPARISON: [facility], CT, CT ANGIO HEAD AND NECK, 01/25/2023, 11:06. FINDINGS: Image quality: Diagnostic. Cerebral CT Angiogram: Internal carotid arteries: No acute findings. Calcific atherosclerotic disease of the petrosal supraclinoid ICAs. Intracranial ICA are patent with no significant stenosis. No occlusion. No aneurysm. Anterior cerebral arteries: Unremarkable. No significant stenosis. No occlusion. No aneurysm. Middle cerebral arteries: Unremarkable. No significant stenosis. No occlusion. No aneurysm. Posterior cerebral arteries: Unremarkable. No significant stenosis. No occlusion. No aneurysm. Basilar artery: Unremarkable. No significant stenosis. No occlusion. No aneurysm. Vertebral arteries: Unremarkable as visualized. Dural venous sinuses: Unremarkable given phase of enhancement. Other: Arterial phase appearance of the brain parenchyma is unremarkable. Neck CT Angiogram: Internal carotid arteries: Calcific atherosclerotic disease at the carotid bulb and takeoff of the internal carotid artery resulting in 54% stenosis of the left internal carotid artery and 25% stenosis of the right internal carotid artery. No significant stenosis. No dissection or occlusion. Common carotid arteries: At the takeoff of the right internal carotid artery there is a small dissection flap, unchanged from comparison best seen on image 263 of series 4. No significant stenosis. No dissection or occlusion. External carotid arteries: Unremarkable. No occlusion. Vertebral arteries: Unremarkable. No significant stenosis. No dissection or occlusion. Aortic Arch and Mediastinum: Partially visualized aortic arch unremarkable without evidence of aneurysm. Origins of the great vessels unremarkable. Other: Arterial phase soft tissues of the neck and chest are unremarkable. IMPRESSION: Unchanged chest external flap of the right distal common carotid artery. 54% stenosis of the takeoff of the left internal carotid artery 25% stenosis of the takeoff of the right internal carotid artery No large vessel occlusion or aneurysm. Any quantitative measurements of stenosis were performed using NASCET criteria. Dictated by: J Luis Solorzano M.D. on 03/15/2025 at 15:03 ECG Data Attestation: I personally reviewed and interpreted this ECG as follows: Prior ECG tracings: available for review Interpretation: Sinus rhythm rate 57 OK interval 220 QRS [address] changes no ischemia there is some T-wave inversion noted in lead 3 this is similar first-degree AV myron block is new since prior EKGs in 2018 MDM Narrative Medical decision making narrative: [facility] CC: Difficulty with speech Complicating co-morbidities: HTN, Hyperlipidemia Data collected from: [place] patient and nursing Medical records reviewed: Limited records on [place] however PCP head more information Differential considered: CVA, TIA, intracranial hemorrhage Exam documented above, pertinent findings include: NIHS 0 no symptoms at this time Lab Test results independently reviewed as above. Pertinent findings: CBC reassuring no leukocytosis no anemia CMP no electrolyte abnormality no BRYCE glucose 100 Troponin negative Independently reviewed EKG as above First-degree AV myron block new since [address] changes Imaging studies independently reviewed: Head CT no intracranial hemorrhage CT angio stable external flap of the right distal common carotid artery, 54% stenosis of left internal carotid artery, 25 present of the right internal carotid artery Consultations: 1651 Dr. Shaw has had right carotid endarterectomy followed by vascular has had an echocardiogram in January 2025 is already taking a statin. Treatments: ASA Re-evaluations: [ ] Discussion: Patient 79-year-old male presenting to day with a slurring of speech. Sounds like it started sometime today but last known well is difficult to pinpoint. Nonetheless he has not improvement of symptoms not a candidate for thrombolytics. He has no evidence of large vessel occlusion. He is ambulatory in the ED. However he has multiple risk factors he is hypertensive and would benefit TIA workup. I did speak with patient's primary care provider who states that he already had an echocardiogram this here. He has history of right carotid endarterectomy but does have some recurrent stenosis. Discussion with patient and son who would like him to stay overnight Discharge Plan Departure Patient Disposition: Admitted as Observation Clinical Impression: Brain TIA Admit Date/Time: 03/15/25 17:07 Admit Provider: Renae Shaw
[2025-03-15 15:59] LABS: INR 1.2 (0.9-1.3); Prothrombin Time 13.2 SECONDS (9.4-12.5)
[2025-03-15 16:02] LABS: PTT Partial Thromboplastin Tim 39 SECONDS (25.1-36.5)
[2025-03-15 16:04] LABS: Alanine Aminotransferase 16 IU/L (<50); Albumin 4.5 g/dL (3.5-5.0); Albumin Globulin Ratio 1.6 (1.0-2.8); Alkaline Phosphatase 76 U/L (38-126); Blood Urea Nitrogen 15 mg/dL (9-20); Calcium 9.6 mg/dL (8.4-10.2); Carbon Dioxide 30 mmol/L (22-32); Chloride 102 mmol/L (98-107); Creatine Kinase 97 U/L (55-170); Estimated Glomerular Filt Rate > 60 mL/min (>60); Ethanol (ETOH) < 10 mg/dL (<10); Globulin 2.9 g/dL (1.7-4.1); Glucose 100 mg/dL (70-99); HEMOLYSIS < 15 (0-50); Potassium 4.0 mmol/L (3.4-5.1); Sodium 140 mmol/L (137-145); Total Protein 7.4 g/dL (6.3-8.2)
[2025-03-15 16:06] LABS: Appearance Urine UA CLEAR; Bilirubin Urine UA NEGATIVE (NEGATIVE); Color Urine UA YELLOW; Glucose Urine UA NEGATIVE (Negative); Ketones Urine UA NEGATIVE (NEGATIVE); Leukocyte Esterase Urine UA NEGATIVE (NEGATIVE); Nitrite Urine UA NEGATIVE (Negative); Occult Blood Urine UA TRACE-INTACT (Negative); Protein Urine UA 3+ (Negative); Specific Gravity Urine UA 1.020 (1.000-1.035); Urobilinogen Urine UA 2.0 E.U./dL (0.2); pH Urine UA 7.5 (4.5-8.0)
[2025-03-15 16:12] LABS: UR Morphine/Opiate cutoff 300 Negative (Negative); Ur Specific Gravity Normal (Normal); Urine MDMA Negative (Negative); Urine Methamphetamines Negative (Negative); Urine Tetrahydrocannabinol Negative (Negative); Urine Tricyclic Antidepressant Negative (Negative)
[2025-03-15 16:13] LABS: Culture Indicated Urine Cult Not Indicated
[2025-03-15 16:15] LABS: Troponin I 0.012 ng/mL (0.01-0.034)
[2025-03-15] MEDS: ASPIRIN 81 MG CHEW TAB 324 MG PO (16:39)
--- NOTE | 2025-03-15 16:44 | EKG_ITS ---
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
--- NOTE | 2025-03-15 17:55 | CM.DANOTE ---
DCP Assessment Note: Pt is a 79yo male, resident of [place], is admitted for TIA work up and hypertension. Pt lives in a house with his and his dog, Brewster. Pt's Primary Care Provider is Dr. Renae Shaw and insurance is Medicare and [facility]. Reviewed chart and discussed with multidisciplinary team pt's medical status and initial discharge needs. DCP met w/patient at bedside; introduced self and role. Patient was found in bed, alert and oriented, cooperative with assessment. Pt confirmed living situation and good support in , he states he is the main caregiver in their relationship. Pt expressed preference in discharge home when medically cleared. Pt has no history of SNF Rehab or Home health. Pt agreeable to working with therapies and discussing recommendations if needed. Plan: Acute Care Admission, Awaiting PT/OT evaluations and recommendation for evolving discharge plans. Anticipating home with [facility]ave[facility] dave, to transport. CM team will follow closely for coordination of discharge plans. JOSE Monet Discharge Planning/Care Management CM Discharge Assessment Start: 03/15/25 17:46 Freq: Status: Active Protocol: Document 03/15/25 17:46 MW (Rec: 03/15/25 17:55 MW [id number]) Discharge Planning Assessment Assigned Discharge LISSETTE [employer] Assistant Provider Dr. Renae Shaw Insurance Medicare DPOA/Assigned Sonia Escobedo, Spouse Designee Name Contact Information [phone] Advance Directives? No History Provided By Patient,Family Member,Medical Record Has Patient been No admitted in last 30 days? Prior Living House Arrangements Household Members spouse Comment Pet - Dog, Brewster Type of Drives own vehicle transporation used prior to admit Independent with ADL Yes 's Is patient alert and Yes oriented? Caregiver for Yes: Another DME Already Rented / Cane,[employer] Owned Discharge Plan Home Transportation [facility] Dave Arrangement Review Status In Process Please Provide Date 03/15/25 Initial DC Assessment Was Performed Next Review Type Continued Stay Review
[2025-03-15] MEDS: GABAPENTIN 600 MG TABLET PO (21:16)
[2025-03-15] MEDS: METOPROLOL ER 25 MG TABLET PO (21:16)
[2025-03-16 00:51] VITALS: BP 164/86; PULSE 61; RESP 18; TEMP 36.3; O2SAT 94
[2025-03-16 04:10] VITALS: BP 175/88; PULSE 55; RESP 19; TEMP 36.4; O2SAT 97
[2025-03-16] MEDS: PANTOPRAZOLE DR 40 MG TABLET PO (06:18)
[2025-03-16 08:39] VITALS: BP 164/72; PULSE 49; RESP 18; TEMP 36.2; O2SAT 96
[2025-03-16] MEDS: TAMSULOSIN 0.4 MG CAPSULE PO (09:49)
[2025-03-16] MEDS: GABAPENTIN 300 MG CAPSULE PO (09:49)
[2025-03-16] MEDS: ENOXAPARIN 40 MG/0.4 ML SYRINGE SUBCUT (09:49)
[2025-03-16] MEDS: ASPIRIN EC 325 MG TABLET PO (09:49)
[2025-03-16] MEDS: FLUoxetine 10 MG CAPSULE PO (09:50)
[2025-03-16 09:54] VITALS: PULSE 50
--- NOTE | 2025-03-16 09:56 | DI.MRI.S_ITS ---
PROCEDURE: MR HEAD/BRAIN WO CON INDICATIONS: compae to ct done yesterday; speech difficulty. TECHNIQUE: Noncontrast axial T1 spin echo, axial T2 fast spin echo, sagittal and axial FLAIR, coronal T2 fast spin echo, axial gradient echo, axial diffusion and ADC through the brain. COMPARISON: [facility], CT, CT STROKE, 03/15/2025, 15:37. FINDINGS: Image quality: Excellent. CSF Spaces: Basal cisterns are patent. No extra-axial fluid collections. Ventricles are normal in size and shape. Brain: No intracranial masses or hemorrhage. Beltran/white matter interface is normal. Brainstem appears normal. Diffusion-weighted images demonstrate no acute infarct. Chronic confluent periventricular white matter changes and scattered subcortical and deep white matter changes bilaterally in a symmetric distribution. Normal intravascular flow voids are present. Skull and face: Calvarium has normal marrow signal. Orbits appear normal. Sinuses: Sinuses and mastoids are clear. IMPRESSION: 1. No acute abnormality. 2. Chronic microvascular ischemic changes. Dictated by: Jamshid Richardson M.D. on 03/16/2025 at 10:27 Approved by: Jamshid Richardson M.D. on 03/16/2025 at 10:33
[2025-03-16 10:58] VITALS: BP 175/83; PULSE 51; RESP 16; TEMP 36.4; O2SAT 98
--- NOTE | 2025-03-16 11:01 | SLP.IPNOTE ---
Chart reviewed. RN not available at time of screen. Pt's son at bedside upon [facility] arrival. He reported pt initially demonstrated slurring and potential symptoms of aphasia (difficulty competing sentences, word-finding), though these appear to have fully resolved. Pt and family denied cognitive-communication and swallowing concerns. Pt was able to respond to case history questions and described current level of function without difficulty. No s/sx of dysarthria, aphasia, or cognitive-communication impairment noted. Pt took sips of water with [facility] present with no overt s/sx of aspiration or other dysphagia s/sx noted. Given that initial dysarthria and aphasia have fully resolved, [facility] services are not warranted at this time. Recommend pt and family monitor function and [facility] be re-consulted if any changes are noted during hospital stay or following discharge. Pt is aware that he may request [facility] referral from PCP as needed.
[2025-03-16 13:11] VITALS: BP 150/62; PULSE 52
[2025-03-16] MEDS: METOPROLOL ER 25 MG TABLET PO (13:11)
--- NOTE | 2025-03-16 13:12 | PM.HP.1 ---
History of Present Illness History of Present Illness Date Patient Seen: 03/16/25 Time Patient Seen: 13:12 Chief complaint: Speech drifting Narrative: 79-year-old male who is well known to me with a known history of hyperlipidemia, tobacco use halfway, prostate cancer, peripheral vascular disease including both carotids and lower extremities as well as hypertension and gout and PTSD who presents to the ER for speech problems. He was not slurring his words but was not able to find words and was speaking gibberish to some extent. Last known well is on known but seems to be some time today. Possibly this afternoon. Son noticed it this afternoon around 130pm his says it started sometime today last night he was within normal limits. Son has noticed improvement in his speech. His symptoms had resolved by the time he got to the ER. He says that he really had a hard time finishing sentences had a hard time coming up with words no slurring of speech no facial droop no other focal deficits. He has noticed complete turnaround in his now back to his self. He has no known history of CVA. On Anticoagulants: No Patient has been in his usual state of health although was seen last week by me for leg discoloration and it was thought this was venous stasis changes it was recommended he use compression stockings Patient also last month was seen in the ER at [facility] for bright red blood per rectum and has since been referred to surgery and is scheduled for colonoscopy on April 08 2 evaluate this. Patient has not had bloody stool since then. Patient denies any chest pain or palpitations or lightheadedness or dizziness. Patient is unsteady on his feet but he was been this way. He has not been as active since the weather has gotten bad. He has not had any headaches. 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 12 point review of system is is otherwise negative. Patient has not had any further bright red blood per rectum or tarry stools and not having any abdominal pain and tolerating p.o. without difficulty Past medical history: 1. Hypertension 2. Gout 3. Hyperlipidemia 4. Peripheral vascular disease status post carotid endarterectomy. Also lower extremity peripheral vascular disease 5. History of prostate cancer 6. PTSD 7. Depression 8. Nephrolithiasis 9. GI bleed Allergies: Angioedema lisinopril Past surgical history: Carotid endarterectomy Social history: Patient is he was retired he lives in [place] he was a son who lives in [place] and a daughter who lives in [place] who are involved in [employer]. He was essentially caregiving for his 100%. Health related behavior: Patient smokes and continues to smoke has smoked for over 50 years Patient does not drink alcohol on a regular basis. Patient was fairly inactive Family history: No history of strokes PFSH Medical History Urge incontinence Lower urinary tract symptoms (LUTS) Low libido Microscopic hematuria History of malignant neoplasm of prostate Prostate cancer Erectile dysfunction due to arterial insufficiency BPH w urinary obs/LUTS Elevated PSA Rheumatoid arthritis Kidney stones Inflammatory bowel diseases (IBD) Gout Depression Chest pain Hyperlipidemia Hypertension Surgical History No pertinent past surgical history Family History Mother Coronary artery disease Hyperlipidemia Hypertension Father Hearing impairment Inflammatory bowel disease Renal failure Social History marital status: number of children: 2 household members: spouse Smoking Status: Current every day smoker Tobacco: How many years used: 55 alcohol intake: former caffeine: Yes Meds Home Medications and Allergies Home Medications ?Medication ?Instructions ?Recorded ?Confirmed ?Type cholecalciferol (vitamin D3) 25 1,000 unit PO BID 01/21/18 03/15/25 History mcg (1,000 unit) capsule (Vitamin D3) omeprazole 20 mg capsule,delayed 20 mg PO DAILY 01/21/18 03/15/25 History release fluoxetine 10 mg capsule 10 mg PO DAILY 04/16/20 03/15/25 History gabapentin 300 mg capsule 300 mg PO DAILY 04/16/20 03/15/25 History nitroglycerin 0.4 mg sublingual 0.4 mg sublingual Q5M PRN chest 04/21/20 03/15/25 History tablet (Nitrostat) pain colchicine 0.6 mg tablet 0.6 mg PO BID PRN gout 01/05/21 03/15/25 History rosuvastatin 10 mg tablet 20 mg PO DAILY 01/05/21 03/15/25 History allopurinol 100 mg tablet 300 mg PO BID 11/22/21 03/15/25 History metoprolol succinate 25 mg 25 mg PO BID 11/07/22 03/15/25 History tablet,extended release 24 hr finasteride 5 mg tablet 5 mg PO DAILY 02/14/24 03/15/25 History tolterodine 4 mg capsule,extended 4 mg PO DAILY #90 caps 02/14/24 03/15/25 Rx release 24 hr Myrbetriq 50 mg tablet,extended 50 mg PO DAILY #90 tabs 01/07/25 03/15/25 Rx release (mirabegron) omeprazole 40 mg capsule,delayed 40 mg PO DAILY 03/02/25 03/15/25 History release gabapentin 600 mg tablet 600 mg PO BEDTIME 03/15/25 03/15/25 History hydrochlorothiazide 25 mg tablet 12.5 mg PO DAILY 03/15/25 03/15/25 History lorazepam 0.5 mg tablet (Ativan) 0.5 mg PO Q8H PRN anxiety 03/15/25 03/15/25 History prazosin 1 mg capsule 1 mg PO BID 03/15/25 03/15/25 History tamsulosin 0.4 mg capsule (Flomax) 0.4 mg PO DAILY 03/15/25 03/15/25 History Allergies Allergy/AdvReac Type Severity Reaction Status Date / Time lisinopril Allergy Intermediate Swelling Verified 03/15/25 15:20 of Lip/Tongue/Throat [id number] Reductase AdvReac Intermediate Muscle Pain Verified 03/15/25 15:20 Inhibitor (Trwmddr-[id number]-Hjs Reductase Inhibitor) Exam Vital Signs (past 8 hours): - 03/16/25 08:00 03/16/25 08:39 03/16/25 09:54 Temperature 97.1 F L Pulse Rate 49 L 50 L Respiratory Rate 18 Blood Pressure 164/72 H Pulse Oximetry 96 Oxygen Delivery Method Room Air Oxygen Flow Rate 0 03/16/25 10:58 Temperature 97.5 F L Pulse Rate 51 L Respiratory Rate 16 Blood Pressure 175/83 H Pulse Oximetry 98 Oxygen Delivery Method Oxygen Flow Rate 0 Oxygen Delivery Method Room Air Oxygen Flow Rate 0 Narrative Exam Narrative: Afebrile vital signs are stable HEENT is unremarkable Neck is supple without adenopathy Chest: Clear to auscultation with prolonged expiratory phase no wheezes rhonchi or crackles Cor: Regular rate and rhythm with distant S1-S2 Abdomen: Obese positive bowel sounds soft nontender nondistended Extremities no edema pulses intact Neurologic exam is nonfocal cranial nerves 2-12 are grossly intact bilateral upper and lower extremities neurovascularly intact Romberg negative Objective Labs 03/15/25 15:38 03/15/25 15:38 Labs: Laboratory Results - last 24 hr 03/15/25 03/15/25 03/15/25 15:38 15:41 16:00 WBC 7.5 RBC 4.79 Hgb 13.9 Hct 40.2 L MCV 84.0 MCH 29.1 MCHC 34.6 RDW 16.1 H Plt Count 193 Neut % (Auto) 74.0 Lymph % (Auto) 14.6 [address] [place] % (Auto) 8.5 Eos % (Auto) 1.8 L Baso % (Auto) 1.1 Neut # (Auto) 5500 Lymph # (Auto) 1100 [place] # (Auto) 600 Eos # (Auto) 100 Baso # (Auto) 100 PT 13.2 H INR 1.2 APTT 39 H Sodium 140 Potassium 4.0 Chloride 102 Carbon Dioxide 30 BUN 15 Creatinine 0.94 Estimated GFR > 60 BUN/Creatinine Ratio 16.0 Glucose 100 H POC Whole Bld Glucose 100 H Calcium 9.6 Total Bilirubin 0.7 AST 25 ALT 16 Alkaline Phosphatase 76 Total Creatine Kinase 97 Troponin I 0.012 Total Protein 7.4 Albumin 4.5 Globulin 2.9 Albumin/Globulin Ratio 1.6 Urine Color Yellow Urine Appearance Clear Urine pH 7.5 Ur Specific [place] 1.020 Urine Protein 3+ H Urine Glucose (UA) Negative Urine Ketones Negative Urine Occult Blood Trace-intact Urine Nitrate Negative Urine Bilirubin Negative Urine Urobilinogen 2.0 H Ur Leukocyte Esterase Negative Urine RBC 0-1/hpf Urine WBC None seen Ur Squamous Epith Cells None seen Urine Bacteria None seen Ur Culture Indicated? Cult not indicated Vol Urine Centrifuged 10ml (spun) U Opiates 300ng/mL cut Negative Ur Oxycodone Screen Negative Urine Methadone Screen Negative Ur Barbiturates Screen Negative U Tricyclic Antidepress Negative Ur Phencyclidine Scrn Negative Ur Amphetamines Screen Negative U Methamphetamines Scrn Negative Ur MDMA Scrn (Ecstasy) Negative U Benzodiazepines Scrn Negative Urine Cocaine Screen Negative U Marijuana (THC) Screen Negative Urine Specific [place] Ethyl Alcohol < 10 Ur Creatinine 03/15/25 16:00 WBC RBC Hgb Hct MCV MCH MCHC RDW Plt Count Neut % (Auto) Lymph % (Auto) [place] % (Auto) Eos % (Auto) Baso % (Auto) Neut # (Auto) Lymph # (Auto) [place] # (Auto) Eos # (Auto) Baso # (Auto) PT INR APTT Sodium Potassium Chloride Carbon Dioxide BUN Creatinine Estimated GFR BUN/Creatinine Ratio Glucose POC Whole Bld Glucose Calcium Total Bilirubin AST ALT Alkaline Phosphatase Total Creatine Kinase Troponin I Total Protein Albumin Globulin Albumin/Globulin Ratio Urine Color Urine Appearance Urine pH Normal Ur Specific [place] Urine Protein Urine Glucose (UA) Urine Ketones Urine Occult Blood Urine Nitrate Urine Bilirubin Urine Urobilinogen Ur Leukocyte Esterase Urine RBC Urine WBC Ur Squamous Epith Cells Urine Bacteria Ur Culture Indicated? Vol Urine Centrifuged U Opiates 300ng/mL cut Ur Oxycodone Screen Urine Methadone Screen Ur Barbiturates Screen U Tricyclic Antidepress Ur Phencyclidine Scrn Ur Amphetamines Screen U Methamphetamines Scrn Ur MDMA Scrn (Ecstasy) U Benzodiazepines Scrn Urine Cocaine Screen U Marijuana (THC) Screen Urine Specific [place] Normal Ethyl Alcohol Ur Creatinine Normal Assessment & Plan Assessment & Plan narrative: 79-year-old male admitted for TIA. Hospital day 1. Assessment 1. Possible TIA. Symptoms completely resolved by the time patient was evaluated in the ER. Workup including CT of the head and CT angio of head and neck were unchanged from previous. Patient 50% stenosis on left and 25% on the right. Unchanged flap was present. MRI today was normal without any acute changes and recent echo showed no evidence of significant abnormality or clot. EF was normal with no dysmotility or wall motion abnormalities. Patient has been on tele overnight with no arrhythmias. Plan: Will discharge patient home with home health for OT and PT Will not place him on platelet inhibitor including aspirin due to recent GI bleed until this is completely worked up. Will let surgery know that he was in with a possible TIA but I do not think this should be a contraindication to him having a colonoscopy to evaluate. Will refer him back to [facility] which he was referred in September and I am unsure why he did not go. I think it was insurance related. Strongly encouraged smoking cessation which he was not interested in. We will continue with rosuvastatin. Continue with treating his blood pressure and I will see him back next week. Will consider neurology eval as well Assessment 2. Hypertension. Patient was not give in his metoprolol due to relative bradycardia but he has been stable on this as an outpatient so we will go ahead and re-initiate continue the hydrochlorothiazide monitor his blood pressure I will see him back next week consider adding amlodipine if needed Assessment 3. Hyperlipidemia Plan: Continue outpatient rosuvastatin Assessment 4. Peripheral edema suspect venous stasis changes. Reviewed echo from January. Recommended compression stockings increasing protein overall nutrition and workup of GI bleeding. Assessment 5. Peripheral vascular disease Plan: Continue rosuvastatin, encouraged smoking cessation and referral back to vascular [place] [facility] Assessment 6. Gout stable will continue outpatient treatment Assessment 7. BPH with lower urinary tract symptoms Plan: Continue finasteride and Flomax Assessment 8. Previous recent GI bleed with no symptoms not significantly anemic Plan: Continue outpatient workup including colonoscopy which is scheduled. Continue on omeprazole Code status is full code 80 minutes was spent with the patient in evaluating ER chart review in clinic chart discussing with the ER physician and Care management and nursing and meeting with the patient in his son and formulating a plan and documentation Patient will be discharged today. Time-Based Coding :: [TOTAL MINUTES] spent with patient and on the chart (including review of chart, obtaining history, exam, reviewing outside data, placing orders, documenting exam and treatment plan, and counseling patient) on [DATE]. Quality VTE Deep Vein Thrombosis/Pulmonary Embolism Present on Admission: No
--- NOTE | 2025-03-16 13:15 | OT.IP.EVAL ---
Past Medical History (Last Reviewed 03/15/25 @ 16:23 by Darshana Santoro DO) BPH w urinary obs/LUTS Chest pain Depression Elevated PSA Erectile dysfunction due to arterial insufficiency Gout History of malignant neoplasm of prostate Hyperlipidemia Hypertension Inflammatory bowel diseases (IBD) Kidney stones Low libido Lower urinary tract symptoms (LUTS) Microscopic hematuria Prostate cancer Rheumatoid arthritis Urge incontinence Surgical History (Last Reviewed 03/15/25 @ 16:23 by Darshana Santoro DO) No pertinent past surgical history Occupational Therapy Inpatient Evaluation/Re-Eval M1 OT IP Prior Functional Status Start: 03/16/25 12:46 Freq: Status: Active Protocol: Document 03/16/25 12:46 MISSY (Rec: 03/16/25 13:15 MISSY Desktop) Medical Review Prior Functional Status Medical History Yes Reviewed Communication Pt was able to speak and make his needs known. No noted difficulties. Pt and son report his speech is at baseline. Mobility and Gait Pt amb with SC at home. Activities of Daily Pt was I with BADLs and all IADLs. 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 Pt is I with driving and all community mobility. Social History Household Members spouse Living Arrangements House Number of Floors ( 3 or More Floors Floors) Number of Stairs To 8 steps per floor with B rails, 2 steps to enter from Enter/Railing? outside with R railing on ascent. Home Environment Standard Height Toilet,Tub/Shower Home Equipment Straight Cane,Shower Seat without Backrest,Grab Bars In Shower Employment Status Retired Additional Social Pt sleeps in an adjustable bed with no railings. History Comment M2 OT-IP Current Condition Start: 03/16/25 12:46 Freq: Status: Active Protocol: Document 03/16/25 12:46 MISSY (Rec: 03/16/25 13:15 MISSY Desktop) Occupational Therapy Current Condition Current Condition Evaluation Date 03/16/25 Treatment Diagnosis TIA, decreased self care Diagnosis Onset Date 03/15/25 M3 OT- IP Subjective and Pain Start: 03/16/25 12:46 Freq: Status: Active Protocol: Document 03/16/25 12:46 MISSY (Rec: 03/16/25 13:15 MISSY Desktop) OT- Subjective Occupational Therapy Visit Type Type Initial Evaluation Visit Start Time 11:45 Visit Stop Time 12:12 Notes Pt was reclined in bed on entrance of OT. Pt was agreeable to participating in OT eval. Occupational Therapy Visit Comments Patient Comments Pt reports that he has had a difficult time with his LB dressing for some time. Pt expresses his concern about how he will manage all of his BADLs, assisting his with her BADLs, and cooking and cleaning that needs to take place when returning home. Pt denies pain during eval, but reports having cramps often at night in both of his upper thighs and occasionally in his forearms. Patient/Caregiver To safely manage stairs. To get well. Goals OT Pain Assessment Pain When Pain Assessed After Treatment Pain Present Pain Present Denied Pain M4 OT- IP ADL's Start: 03/16/25 12:46 Freq: Status: Active Protocol: Document 03/16/25 12:46 MISSY (Rec: 03/16/25 13:15 OSVALDONHSINDY Desktop) OT [id number] Comments OT Self-Feeding not a meal time Comments OT ADL-Grooming General Evaluation Grooming Ability Standby Assistance Comments OT Grooming Comments washing hands sink side with assist to reach soap dispenser OT ADL-Oral Care Comments Oral Care Comments not observed OT ADL-Dressing General Eval Upper Body Dressing Minimal Assistance Ability Lower Body Dressing Minimal Assistance Ability Areas Needing Underpants/Brief Assistance Comments OT Dressing Comments Pt needed to changes his clothes after toileting due to them getting soiled. Pt needed min A for hospital gown . Pt need min A to get brief over his second foot but is otherwise able to pull them up. Pt did not need assist to doff brief. Pt reports that he has difficulty donning LB clothing at home and often sits on a step to make it easier to reach. Pt would benefit from education on LB AE. OT ADL-Toileting General Evaluation Toileting Ability Contact Guard Assistance Comments OT Toileting Pt with urinary urgency since prostate cancer tx. Pt Comments was CGA due to balance when standing to urinate. Pt soiled his clothing during the urgency. OT ADL-Bathing Comments OT Bathing Comments not observed M5 OT- IP IADL's Start: 03/16/25 12:46 Freq: Status: Active Protocol: Document 03/16/25 12:46 MISSY (Rec: 03/16/25 13:15 [facility] OT-Instrumental Activities of Daily Living Deficits IADL Deficits Deficits Identified Home Safety Awareness Awareness of Need Decreased Awareness for Assistance at Home Ability to Problem Unable to Problem Solve Solve Emergency Situations Medication Management Medication No Deficits Identified Management Money Management Money Management No Deficits Identified Meal Preparation Meal Preparation Pt is the caregiver for his and performs this task Comments at home. Pts son can assist for approximately 1 week on dc. Cleaner Cleaner Pt is the caregiver for his and performs this task Comments at home. Pts son can assist for approximately 1 week on dc. Driving Driving Comments Pt is the caregiver for his and performs this task at home. Pts son can assist for approximately 1 week on dc. M6 OT- IP Functional Cognition Start: 03/16/25 12:46 Freq: Status: Active Protocol: Document 03/16/25 12:46 MISSY (Rec: 03/16/25 13:15 [facility] Cognitive Factors Limiting Selfcare Function Cognitive Ability Level of Alertness Alert Patient Orientation Name,Age,Birthday,Place,Situation Attention Span Capable of Focused Attention,Capable of Sustained Ability Attention Ability to Follow Able to Follow Multi-Step Commands Commands Memory Description No Deficits Noted Safety Awareness Underestimates Need for Assistance Problem Solving Unable to Identify Errors,Needs Assist to Identify Ability Solutions Executive Function No Deficits Noted Ability Abstract Thinking No Deficits Noted Ability Cognitive Comments Cognitive Assessment Pt usually ambulates with a SC, pt had LOB x3 while amb Comments with FWW with OT, despite this, pt continually tries to leave the FWW behind and needs heavy cues to use the AE while amb. OT- Vision and Hearing OT- Hearing Assessment OT- Hearing Hearing Impaired Assessment OT- Vision Assessment Visual Acuity WFL,Glasses For Reading M7 OT- IP Mobility and Balance Start: 03/16/25 12:46 Freq: Status: Active Protocol: Document 03/16/25 12:46 MISSY (Rec: 03/16/25 13:15 [facility] OT- Bed Mobility Assessment Supine to Sit Supine to Sit Assist Minimal Assistance Scooting Scooting to Edge of Standby Assistance Bed OT-Transfer Assessment Sit to and From Stand Sit to and from Contact Guard Assistance,Minimal Assistance Stand Transfers Transfer Ability Contact Guard Assistance,Minimal Assistance Technique Transfer Destination Chair,Toilet Transfer Technique Stand Step Pivot Devices Transfer Assistive Gait Belt,Front Wheeled Walker Devices Comments Mobility Comments Pt requires min A to push up to sitting when getting out on the R side of the bed. Pt usually performs this task on the L side at home. Pt used the FWW to amb to the bathroom for toileting, to the sink for hand hygiene, and to the recliner. During amb pt had LOB x3. Pt needed heavy cues to keep the FWW with him, often leaving it behind when getting close to his destination . Pt also needs cues to not pull himself up from the walker, rather to push himself up from the surface. OT- Gait Assessment Gait Gait Assistance Contact Guard Assist Required: Distance (Feet) 30 Assistive Devices Assistive Device Gait Belt,Front Wheeled Walker OT- Balance Assessment Sitting Balance and Reactions Static Sitting Good Balance Ability Dynamic Sitting Fair Balance Ability Standing Balance and Reactions Static Standing Good Balance Ability Dynamic Standing Fair Balance Ability M8 OT- IP Objective Assessments Start: 03/16/25 12:46 Freq: Status: Active Protocol: Document 03/16/25 12:46 MISSY (Rec: 03/16/25 13:15 [facility] Desktop) OT Gross Range of Motion Upper Extremity Range of Motion Assessment Within Functional Limits OT Strength Upper Extremity Strength Assessment Within Functional Limits Shoulder 4 Elbow 5 Hand 4 Hand Sand Temperer Strength Hand Dominance Right OT- Coordination Assessment Comments Coordination intact for thumb to fingertips Comments OT-Muscle Tone Assessment Muscle Tone WNL Yes OT Sensation Assessment Edema Edema Absent M9 OT- IP Assessment and Plan Start: 03/16/25 12:46 Freq: Status: Active Protocol: Document 03/16/25 12:46 MISSY (Rec: 03/16/25 13:15 [facility] Desktop) OT Summary Assessment and Plan Potential Rehabilitation Excellent Potential Analytic Complexity Low at Evaluation Summary OT Impairments Balance,Functional Mobility,Self-Feeding,Grooming, Dressing,Toileting,Bathing,Toilet Transfers,Shower Transfers,Activity Tolerance Progress Towards Progressing Toward Goals Goals Assessment Summary Pt is an 79 yo M who was noted by family to have slurred speech. Pt was brought to the ED. Pts CT was negative for a stroke. Pt was admitted with a TIA. Pts speech has since improved to baseline per pt and son. Pt reports that he was I with BADLs and IADLs including being his 's caregiver. Pt does all of the cooking , cleaning, and driving for the household. Pts son lives 1.5 hours away. Pt reports that he was having difficulty with LB dressing for sometime. During eval, pt had LOB x3 while amb with FWW between BADL tasks. Pt required MIN A for LB dressing, MIN A for UB dressing, CGA for toileting, MIN A for bed mobility, and CGA-MIN A for tfs. Pt requires vcs for safety especially with using FWW and when tfing. Pt would benefit from education on LB AE for dressing. Pt is appropriate for skilled OT services and would benefit from addressing these deficits and promoting return towards PLOF. Pt would benefit from HH OT on dc home. Goals Self-Feeding Goal Independent Grooming Goal Independent Dressing Goal Independent,Power Plant Engineer,Sock Aid Toileting Goal Independent Bathing Goal Independent,Grab Bars Toilet Transfer Goal Independent,Grab Bars Shower Transfer Goal Independent,Tub/Shower Combination,Grab Bars Days to Meet Goals 5 Frequency of Treatment Other frequency 5x/wk Treatment Plan OT Treatment Plan ADL Training,Functional Mobility,Therapeutic Exercises, Patient/Family Education,Discharge Planning Other Treatment LB AE education Recommendations and Next Treatment Focus Discharge Recommendations OT Discharge Home,Home Health Recommendations Transportation Needs Private Vehicle at Discharge
--- NOTE | 2025-03-16 13:34 | PM.DS.1 ---
History of Present Illness History of Present Illness Chief complaint: Speech drifting Narrative: 79-year-old male who is well known to me with a known history of hyperlipidemia, tobacco use correction, prostate cancer, peripheral vascular disease including both carotids and lower extremities as well as hypertension and gout and PTSD who presents to the ER for speech problems. He was not slurring his words but was not able to find words and was speaking gibberish to some extent. Last known well is on known but seems to be some time today. Possibly this afternoon. Son noticed it this afternoon around 130pm his says it started sometime today last night he was within normal limits. Son has noticed improvement in his speech. His symptoms had resolved by the time he got to the ER. He says that he really had a hard time finishing sentences had a hard time coming up with words no slurring of speech no facial droop no other focal deficits. He has noticed complete turnaround in his now back to his self. He has no known history of CVA. On Anticoagulants: No Patient has been in his usual state of health although was seen last week by me for leg discoloration and it was thought this was venous stasis changes it was recommended he use compression stockings Patient also last month was seen in the ER at [facility] for bright red blood per rectum and has since been referred to surgery and is scheduled for colonoscopy on April 08 2 evaluate this. Patient has not had bloody stool since then. Patient denies any chest pain or palpitations or lightheadedness or dizziness. Patient is unsteady on his feet but he was been this way. He has not been as active since the weather has gotten bad. He has not had any headaches. 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 12 point review of system is is otherwise negative. Patient has not had any further bright red blood per rectum or tarry stools and not having any abdominal pain and tolerating p.o. without difficulty Past medical history: 1. Hypertension 2. Gout 3. Hyperlipidemia 4. Peripheral vascular disease status post carotid endarterectomy. Also lower extremity peripheral vascular disease 5. History of prostate cancer 6. PTSD 7. Depression 8. Nephrolithiasis 9. GI bleed Allergies: Angioedema lisinopril Past surgical history: Carotid endarterectomy Social history: Patient is he was retired he lives in [place] he was a son who lives in [place] and a daughter who lives in [place] who are involved in helpful. He was essentially caregiving for his 100%. Health related behavior: Patient smokes and continues to smoke has smoked for over 50 years Patient does not drink alcohol on a regular basis. Patient was fairly inactive Family history: No history of strokes Discharge Providers Provider Date of admission: 03/15/25 17:07 Discharge Date: 03/16/25 Primary care physician: Renae Shaw MD Consults: 03/16/25 09:41 Consult to Occupational Therapy Evaluate & Treat Comment: Physician Instructions: Evaluate and treat Consult to Physical Therapy Evaluate & Treat Comment: Physician Instructions: Evaluate and Treat Consult to Speech Therapy Evaluate & Treat Comment: Physician Instructions: Evaluate and treat Discharge provider: Renae Shaw MD Summary Hospital Course Discharge Diagnosis: Possible TIA. Symptoms completely resolved by the time patient was evaluated in the ER. Workup including CT of the head and CT angio of head and neck were unchanged from previous. Patient 50% stenosis on left and 25% on the right. Unchanged flap was present. MRI today was normal without any acute changes and recent echo showed no evidence of significant abnormality or clot. EF was normal with no dysmotility or wall motion abnormalities. Patient has been on tele overnight with no arrhythmias. Plan: Will discharge patient home with home health for OT and PT Will not place him on platelet inhibitor including aspirin due to recent GI bleed until this is completely worked up. Will let surgery know that he was in with a possible TIA but I do not think this should be a contraindication to him having a colonoscopy to evaluate. Will refer him back to [facility] which he was referred in September and I am unsure why he did not go. I think it was insurance related. Strongly encouraged smoking cessation which he was not interested in. We will continue with rosuvastatin. Continue with treating his blood pressure and I will see him back next week. Will consider neurology eval as well Hospital Course: Patient admitted monitored overnight MRI was negative monitor showed no arrhythmias patient no further symptoms patient was evaluated by speech therapy who did not feel he met any needs and OT who recommended outpatient home health OT and PT. Discharged home on hospital day 1. In stable condition on outpatient medications aspirin treatment currently contraindicated due to recent GI bleed Status at Discharge Cognitive/behavioral status at discharge: at baseline, oriented Functional status at discharge: uses cane/walker Overall status at discharge: patient is back to baseline Exam Vital Signs (past 8 hours): - 03/16/25 08:00 03/16/25 08:39 03/16/25 09:54 Temperature 97.1 F L Pulse Rate 49 L 50 L Respiratory Rate 18 Blood Pressure 164/72 H Pulse Oximetry 96 Oxygen Delivery Method Room Air Oxygen Flow Rate 0 03/16/25 10:58 03/16/25 13:11 Temperature 97.5 F L Pulse Rate 51 L 52 L Respiratory Rate 16 Blood Pressure 175/83 H 150/62 H Pulse Oximetry 98 Oxygen Delivery Method Oxygen Flow Rate 0 Oxygen Delivery Method Room Air Oxygen Flow Rate 0 Narrative Exam Narrative: See admit exam Objective Labs 03/15/25 15:38 03/15/25 15:38 Labs: Laboratory Results - last 24 hr 03/15/25 03/15/25 03/15/25 15:38 15:41 16:00 WBC 7.5 RBC 4.79 Hgb 13.9 Hct 40.2 L MCV 84.0 MCH 29.1 MCHC 34.6 RDW 16.1 H Plt Count 193 Neut % (Auto) 74.0 Lymph % (Auto) 14.6 L [place] % (Auto) 8.5 Eos % (Auto) 1.8 L Baso % (Auto) 1.1 Neut # (Auto) 5500 Lymph # (Auto) 1100 [place] # (Auto) 600 Eos # (Auto) 100 Baso # (Auto) 100 PT 13.2 H INR 1.2 APTT 39 H Sodium 140 Potassium 4.0 Chloride 102 Carbon Dioxide 30 BUN 15 Creatinine 0.94 Estimated GFR > 60 BUN/Creatinine Ratio 16.0 Glucose 100 H POC Whole Bld Glucose 100 H Calcium 9.6 Total Bilirubin 0.7 AST 25 ALT 16 Alkaline Phosphatase 76 Total Creatine Kinase 97 Troponin I 0.012 Total Protein 7.4 Albumin 4.5 Globulin 2.9 Albumin/Globulin Ratio 1.6 Urine Color Yellow Urine Appearance Clear Urine pH 7.5 Ur Specific [place] 1.020 Urine Protein 3+ H Urine Glucose (UA) Negative Urine Ketones Negative Urine Occult Blood Trace-intact Urine Nitrate Negative Urine Bilirubin Negative Urine Urobilinogen 2.0 H Ur Leukocyte Esterase Negative Urine RBC 0-1/hpf Urine WBC None seen Ur Squamous Epith Cells None seen Urine Bacteria None seen Ur Culture Indicated? Cult not indicated Vol Urine Centrifuged 10ml (spun) U Opiates 300ng/mL cut Negative Ur Oxycodone Screen Negative Urine Methadone Screen Negative Ur Barbiturates Screen Negative U Tricyclic Antidepress Negative Ur Phencyclidine Scrn Negative Ur Amphetamines Screen Negative U Methamphetamines Scrn Negative Ur MDMA Scrn (Ecstasy) Negative U Benzodiazepines Scrn Negative Urine Cocaine Screen Negative U Marijuana (THC) Screen Negative Urine Specific [place] Ethyl Alcohol < 10 Ur Creatinine 03/15/25 16:00 WBC RBC Hgb Hct MCV MCH MCHC RDW Plt Count Neut % (Auto) Lymph % (Auto) [place] % (Auto) Eos % (Auto) Baso % (Auto) Neut # (Auto) Lymph # (Auto) [place] # (Auto) Eos # (Auto) Baso # (Auto) PT INR APTT Sodium Potassium Chloride Carbon Dioxide BUN Creatinine Estimated GFR BUN/Creatinine Ratio Glucose POC Whole Bld Glucose Calcium Total Bilirubin AST ALT Alkaline Phosphatase Total Creatine Kinase Troponin I Total Protein Albumin Globulin Albumin/Globulin Ratio Urine Color Urine Appearance Urine pH Normal Ur Specific [place] Urine Protein Urine Glucose (UA) Urine Ketones Urine Occult Blood Urine Nitrate Urine Bilirubin Urine Urobilinogen Ur Leukocyte Esterase Urine RBC Urine WBC Ur Squamous Epith Cells Urine Bacteria Ur Culture Indicated? Vol Urine Centrifuged U Opiates 300ng/mL cut Ur Oxycodone Screen Urine Methadone Screen Ur Barbiturates Screen U Tricyclic Antidepress Ur Phencyclidine Scrn Ur Amphetamines Screen U Methamphetamines Scrn Ur MDMA Scrn (Ecstasy) U Benzodiazepines Scrn Urine Cocaine Screen U Marijuana (THC) Screen Urine Specific [place] Normal Ethyl Alcohol Ur Creatinine Normal PFSH Medical History Urge incontinence Lower urinary tract symptoms (LUTS) Low libido Microscopic hematuria History of malignant neoplasm of prostate Prostate cancer Erectile dysfunction due to arterial insufficiency BPH w urinary obs/LUTS Elevated PSA Rheumatoid arthritis Kidney stones Inflammatory bowel diseases (IBD) Gout Depression Chest pain Hyperlipidemia Hypertension Surgical History No pertinent past surgical history Family History Mother Coronary artery disease Hyperlipidemia Hypertension Father Hearing impairment Inflammatory bowel disease Renal failure Social History (Reviewed 03/15/25 @ 16:23 by CHANTAL Stack marital status: number of children: 2 household members: spouse Smoking Status: Current every day smoker Tobacco: How many years used: 55 alcohol intake: former caffeine: Yes Discharge Assessment & Plan Assessment and Plan Assessment: Possible TIA Plan of Treatment: Possible TIA. Symptoms completely resolved by the time patient was evaluated in the ER. Workup including CT of the head and CT angio of head and neck were unchanged from previous. Patient 50% stenosis on left and 25% on the right. Unchanged flap was present. MRI today was normal without any acute changes and recent echo showed no evidence of significant abnormality or clot. EF was normal with no dysmotility or wall motion abnormalities. Patient has been on tele overnight with no arrhythmias. Plan: Will discharge patient home with home health for OT and PT Will not place him on platelet inhibitor including aspirin due to recent GI bleed until this is completely worked up. Will let surgery know that he was in with a possible TIA but I do not think this should be a contraindication to him having a colonoscopy to evaluate. Will refer him [facility] he was [facility] in September and I am unsure why he did not go. I think it was insurance related. Strongly encouraged smoking cessation which he was not interested in. We will continue with rosuvastatin. Continue with treating his blood pressure and I will see him back next week. Will consider neurology eval as well Discharge Plan Discharge Plan Patient Disposition: Home Discharge orders & Medications Prescriptions: Continued gabapentin 300 mg capsule 300 mg PO DAILY fluoxetine 10 mg capsule 10 mg PO DAILY mirabegron [Myrbetriq] 50 mg tablet extended release 24 hr 50 mg PO DAILY Qty: 90 3RF omeprazole 40 mg capsule,delayed release(DR/EC) 40 mg PO DAILY omeprazole 20 mg Capsule,Delayed Release(Dr/Ec) 20 mg PO DAILY cholecalciferol (vitamin D3) [Vitamin D3] 1,000 unit Capsule 1,000 unit PO BID colchicine 0.6 mg tablet 0.6 mg PO BID PRN (Reason: gout) allopurinol 100 mg tablet 300 mg PO BID metoprolol succinate 25 mg tablet extended release 24 hr 25 mg PO BID gabapentin 600 mg tablet 600 mg PO BEDTIME hydrochlorothiazide 25 mg tablet 12.5 mg PO DAILY lorazepam [Ativan] 0.5 mg tablet 0.5 mg PO Q8H PRN (Reason: anxiety) prazosin 1 mg capsule 1 mg PO BID tamsulosin [Flomax] 0.4 mg capsule 0.4 mg PO DAILY nitroglycerin [Nitrostat] 0.4 mg tablet, sublingual 0.4 mg sublingual Q5M PRN (Reason: chest pain) Rx Instructions: do not exceed 3 doses per episode finasteride 5 mg tablet 5 mg PO DAILY tolterodine 4 mg capsule,extended release 24hr 4 mg PO DAILY Qty: 90 3RF rosuvastatin 10 mg tablet 20 mg PO DAILY Follow up/Referrals: Renae Shaw MD [Primary Care Provider, Family Practice] Visit Report/Discharge Packet Stand Alone Forms: Patient Portal/API, Stroke Signs & Symptoms Discharge Data Primary Care Provider: Renae Shaw Attending Provider: Renae Shaw Admit Date/Time: 03/15/25 17:07 Quality VTE Deep Vein Thrombosis/Pulmonary Embolism Present on Admission: No
--- NOTE | 2025-03-16 14:08 | PT.IIE ---
Surgical History (Last Reviewed 03/15/25 @ 16:23 by Darshana Santoro DO) No pertinent past surgical history Medical History (Last Reviewed 03/15/25 @ 16:23 by Darshana Santoro DO) BPH w urinary obs/LUTS Chest pain Depression Elevated PSA Erectile dysfunction due to arterial insufficiency Gout History of malignant neoplasm of prostate Hyperlipidemia Hypertension Inflammatory bowel diseases (IBD) Kidney stones Low libido Lower urinary tract symptoms (LUTS) Microscopic hematuria Prostate cancer Rheumatoid arthritis Urge incontinence Physical Therapy Inpatient Evaluation/Re-Eval M1 PT IP Prior Functional Status Start: 03/16/25 13:44 Freq: NEEDED Status: Active Protocol: Document 03/16/25 13:44 AMB (Rec: 03/16/25 14:07 AMB [id number]) Medical Review Prior Functional Status Medical History Yes Reviewed Communication Pt was able to speak and make his needs known. No noted difficulties. Pt and son report his speech is at baseline. Mobility and Gait Pt amb with SC at home. Activities of Daily Pt was I with BADLs and all IADLs. 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 Pt is I with driving and all community mobility. Social History Household Members spouse Living Arrangements House Number of Floors ( 3 or More Floors Floors) Number of Stairs To 8 steps per floor with B rails, 2 steps to enter from Enter/Railing? outside with R railing on ascent. Home Environment Standard Height Toilet,Tub/Shower Home Equipment Straight Cane,Shower Seat without Backrest,Grab Bars In Shower Employment Status Retired Additional Social Pt sleeps in an adjustable bed with no railings. History Comment M2 PT-IP Current Condition Start: 03/16/25 13:44 Freq: NEEDED Status: Active Protocol: Document 03/16/25 13:44 AMB (Rec: 03/16/25 14:07 AMB [id number]) Physical Therapy Current Condition Current Condition Evaluation Date 03/16/25 Treatment Diagnosis TIA Onset Date 03/15/25 M3 PT-IP Subjective Start: 03/16/25 13:44 Freq: NEEDED Status: Active Protocol: Document 03/16/25 13:44 AMB (Rec: 03/16/25 14:07 AMB [id number]) Subjective Physical Therapy Visit Type Type Initial Evaluation Visit Start Time 13:15 Visit Stop Time 13:40 Physical Therapy Visit Comments Patient Comments Pt is sitting up in recliner, son is in the room. Pt willing to get up and do the stairs Patient Goals Go home Therapy Pain Assessment Pain When Pain Assessed At Rest Pain Present Pain Present Denied Pain M4 PT-IP Mobility and Gait Start: 03/16/25 13:44 Freq: NEEDED Status: Active Protocol: Document 03/16/25 13:44 AMB (Rec: 03/16/25 14:07 AMB [id number]) PT-Transfer Assessment Sit to and From Stand Sit to and from Standby Assistance Stand Equipment Transfer Assistive Gait Belt,Front Wheeled Walker Device Transfers Transfer Destination Chair Transfer Technique Stand Step Pivot Transfer Ability Level of Assist Standby Assistance Comments Mobility Comments Gene was sitting in the recliner, moved from sit to stand with SBA up to the FWW that was placed for him. Gait Assessment Gait Gait Assistance Contact Guard Assist Required: Distance (Feet) 200 Assistive Devices Assistive Device Gait Belt,Front Wheeled Walker Gait Deviations General Gait Pattern Decreased Feet Clearance Factors Limiting Gait Function Factors Limiting Poor Balance,Poor Safety Awareness Gait Function Comments Gait Comments Gene ambulated 100' with FWW and CGA and then 100' without AD as that is his baseline. He did have one episode of veering during a turn that he was able to independently manage. His son feels this is his baseline mobility. Stair Climbing Assessment Evaluation Level of Assist On Standby Assistance Stairs Devices Stair Climbing Right Railing Assistive Devices Technique/Endurance Stair Climbing Ascend and Descend Direction Stair Climbing Step Over Step Technique Stair Climbing Set # 2 Repetitions (reps) M5 PT-IP Objective Assessments Start: 03/16/25 13:44 Freq: NEEDED Status: Active Protocol: Document 03/16/25 13:44 AMB (Rec: 03/16/25 14:07 AMB [id number]) Orientation Orientation/Cognition Level of Alertness Alert Gross Range of Motion Lower Extremity ROM Assessment Within Functional Limits Strength Lower Extremity Strength Assessment Within Functional Limits M6 PT-IP Treatment Start: 03/16/25 13:44 Freq: NEEDED Status: Active Protocol: Document 03/16/25 13:44 AMB (Rec: 03/16/25 14:07 AMB [id number]) Physical Therapy Treatment Education Education Provided Safety M7 PT-IP Assessment and Plan Start: 03/16/25 13:44 Freq: NEEDED Status: Active Protocol: Document 03/16/25 13:44 AMB (Rec: 03/16/25 14:07 AMB [id number]) PT Summary Assessment and Plan Potential Rehabilitation Good Potential Status of Condition Stable at Evaluation Summary Assessment Summary Rajendra was able to ambulate 100' with FWW and CGA to the stairs and then ascend and descend 3 stairs with 1 railing x 2 with SBA. He then ambulated without AD for 100' and CGA, with one misstep that he independently corrected. Discussed home setup with son and Gene. Son feels he is at his baseline mobility oliver, but PT did discuss danger of urgently going to the bathroom in the middle of the night, and suggested urinal usage or having a FWW next to the bed at least for use at night . Son felt he could get those things in the community. They did say that they would consider home health. Would recommend home with home health when medically stable. Goals Bed Mobility Goal Independent Transfer Goal Independent,Standby Assistance Gait Distance 200 Other Goals Stairs: 8 steps with 1 railing with SBA Days to Meet Goals 3 Frequency of Treatment Frequency Of Once a Day Treatment Treatment Plan Physical Therapy Transfer Training,Gait Training,Therapeutic Exercise, Treatment Plan Balance Retraining Recommendations To Nursing Amount of Assist 1 Person Assist Needed Discharge Recommendations PT Discharge Home with Assistance,Home Health Recommendations Equipment Needed for Son to consider FWW and urinal, states will get in the Home Before community Discharge Transportation Needs Private Vehicle at Discharge - PT assist 1
--- NOTE | 2025-03-16 14:08 | CM.DPNOTE ---
DCP note WIRE BENDER reviewed EMR per provider, cleared for dc home today with HH. per PT/OT- rec HH. WIRE BENDER met with pt and son in room. reviewed DCP/HH options. no preference for agency. Ref sent to [facility] due to rotating vendor calendar. provided LTC/PP CG information to support him caring for spouse at home. denies other DCP/CM needs at this time. WIRE BENDER sent ref to Estuardo from [facility] for review. f2f/order completed. P: dc home today with son/[facility] HH support pending official acceptance. no further CM needs at this time, will continue to follow as needed in case any additional DCP needs should arise LISSETTE Willingham
--- NOTE | 2025-03-16 14:19 | PC.NURSE ---
Patient seen by Dr. Shaw, and she requests this nurse to give his metoprolol as he normally takes (patient has bradycardia on telemetry). See MAR. Patient tolerating meals, communicating without difficulty. Patient worked with PT and OT, and met with case management and agrees to home health. Patient picked up by his son. Discharge instructions reviewed with patient and his son, they have no further questions at this time. Patient will call Dr. Shaw's office to schedule a follow up.
--- NOTE | 2025-03-17 08:49 | CM.DPNOTE ---
F/u contact HEARING AID REPAIRER recieved email from Estuardo at [facility] stating when they called to set up services hung up on him. HEARING AID REPAIRER lvm with cell phone on file for pt. no response. updated [facility]. SL
== END 2025-03-16 14:15 | disposition home or self-care (01) ==
LOC: ED 17:08 → AC 17:08
PROVIDERS: Admitting Provider Family Medicine; Emergency Provider Emergency Medicine; PCP Family Medicine; Referring Provider Emergency Medicine; Visit Provider Family Medicine
DX: R47.89 Other speech disturbances (principal); I10 Essential (primary) hypertension; R00.1 Bradycardia, unspecified; E78.5 Hyperlipidemia, unspecified; R60.0 Localized edema; M10.9 Gout, unspecified; N40.1 Benign prostatic hyperplasia with lower urinary tract symptoms; I65.23 Occlusion and stenosis of bilateral carotid arteries; I73.9 Peripheral vascular disease, unspecified; F17.200 Nicotine dependence, unspecified, uncomplicated; Z87.19 Personal history of other diseases of the digestive system
CPT/HCPCS: 36415; 70450; 70496; 70498; 70551; 80053; 80305; 80320; 81001; 82550; 82962; 84484; 85025; 85610; 85730; 93005; 96372; 97161; 97165; 99284; G0378; J1650; Q9967

== ENCOUNTER 2025-04-08 09:42 | Day surgery (SDC) | payer MEDICARE, SELFPAY ==
[2025-03-15 17:46] VITALS: BMI 31.4
[2025-04-03 08:41] VITALS: BMI 32.3
--- NOTE | 2025-04-08 | PATH_ITS ---
[facility] Accession Number: [id number] No. of containers..04 Tissue . 01 Material submitted: . PART A: stomach - STOMACH, ANTRAL PART B: stomach - GASTRIC, GREATER CURVE PART C: esophagus - ESOPHAGUS PART D: colon - COLON, ASCENDING POLYP AT 110CM . 01 Diagnosis: Part A: STOMACH, ANTRAL: Gastric mucosa with mild chronic inflammation. No Helicobacter organisms identified. No intestinal metaplasia, dysplasia, or malignancy identified. . Part B: GASTRIC, GREATER CURVE: Gastric mucosa with no diagnostic alterations. No Helicobacter organisms identified on H/E stain. No intestinal metaplasia, dysplasia, or malignancy identified. . Part C: ESOPHAGUS: 1. Squamous mucosa with no diagnostic alterations. Eosinophils are not increased. 2. Superficial glandular mucosa with no diagnostic alterations, including no goblet cell metaplasia. . Part D: COLON, ASCENDING POLYP AT 110CM: Tubular adenoma. [facility] 04/14/2025 1324 Local . 01 Electronically signed: . Jonathan Nicholson MD, Pathologist NPI- [id number] . 01 Gross description: . A. Received in formalin with two identifiers and antral biopsies, are two flannery friable soft tissue fragments 0.3 cm each in greatest dimension. Submitted entirely in cassette A1. . B. Received in formalin with two identifiers and gastric biopsies greater curve, are two flannery soft tissue fragments 0.2 to 0.3 cm in greatest dimension. Submitted entirely in cassette B1. . C. Received in formalin with two identifiers and esophageal biopsy, are three flannery friable soft tissue fragments 0.1 to 0.2 cm in greatest dimension. Submitted entirely in cassette C1. . D. Received in formalin with two identifiers and ascending polyp 110 cm, is a single flannery soft tissue fragment 0.6 x 0.5 x 0.4 cm. Submitted entirely in cassette D1. ([id number]) /GRACIE 04/14/2025 1324 Local . 01 Microscopic: . Part A: ANTRAL: An immunohistochemical stain was performed to evaluate for Helicobacter organisms and is negative. The control stains appropriately. * This test was developed and the performance characteristics were validated by [employer]. It has not been cleared or approved by the Food and Drug Administration. . 01 Pathologist provided ICD-10: D12.2, K29.50 . 01 CPT . 226070, 962955, 400502, 470492, N13337 Specimen Comment: A courtesy copy of this report has been sent to [facility] Pathology Performed at: [address] [facility], [place], [place] [id number] MD Jonathan Nicholson MD Phone: [phone]
--- NOTE | 2025-04-08 07:21 | PM.HP.IH.1 ---
History of Present Illness History of Present Illness Date Patient Seen: 04/08/25 Chief complaint: EGD & Colonoscopy w/poss bx's Narrative: 79yo M, presents for EGD/colonoscopy today. H/O esophagitis, tubular adenomas. Due for 3 year repeat exam. [facility] Medical History Urge incontinence Lower urinary tract symptoms (LUTS) Low libido Microscopic hematuria History of malignant neoplasm of prostate Prostate cancer Erectile dysfunction due to arterial insufficiency BPH w urinary obs/LUTS Elevated PSA Rheumatoid arthritis Kidney stones Inflammatory bowel diseases (IBD) Gout Depression Chest pain Hyperlipidemia Hypertension Surgical History No pertinent past surgical history Family History Mother Coronary artery disease Hyperlipidemia Hypertension Father Hearing impairment Inflammatory bowel disease Renal failure Social History marital status: number of children: 2 household members: spouse Smoking Status: Current every day smoker Tobacco: How many years used: 55 alcohol intake: former caffeine: Yes Meds Home Medications and Allergies Home Medications ?Medication ?Instructions ?Recorded ?Confirmed ?Type cholecalciferol (vitamin D3) 25 1,000 unit PO BID 01/21/18 03/15/25 History mcg (1,000 unit) capsule (Vitamin D3) omeprazole 20 mg capsule,delayed 20 mg PO DAILY 01/21/18 03/15/25 History release fluoxetine 10 mg capsule 10 mg PO DAILY 04/16/20 03/15/25 History gabapentin 300 mg capsule 300 mg PO DAILY 04/16/20 03/15/25 History nitroglycerin 0.4 mg sublingual 0.4 mg sublingual Q5M PRN chest 04/21/20 03/15/25 History tablet (Nitrostat) pain colchicine 0.6 mg tablet 0.6 mg PO BID PRN gout 01/05/21 03/15/25 History rosuvastatin 10 mg tablet 20 mg PO DAILY 01/05/21 03/15/25 History allopurinol 100 mg tablet 300 mg PO BID 11/22/21 03/15/25 History metoprolol succinate 25 mg 25 mg PO BID 11/07/22 03/15/25 History tablet,extended release 24 hr finasteride 5 mg tablet 5 mg PO DAILY 02/14/24 03/15/25 History tolterodine 4 mg capsule,extended 4 mg PO DAILY #90 caps 02/14/24 03/15/25 Rx release 24 hr Myrbetriq 50 mg tablet,extended 50 mg PO DAILY #90 tabs 01/07/25 03/15/25 Rx release (mirabegron) omeprazole 40 mg capsule,delayed 40 mg PO DAILY 03/02/25 03/15/25 History release gabapentin 600 mg tablet 600 mg PO BEDTIME 03/15/25 03/15/25 History hydrochlorothiazide 25 mg tablet 12.5 mg PO DAILY 03/15/25 03/15/25 History lorazepam 0.5 mg tablet (Ativan) 0.5 mg PO Q8H PRN anxiety 03/15/25 03/15/25 History prazosin 1 mg capsule 1 mg PO BID 03/15/25 03/15/25 History tamsulosin 0.4 mg capsule (Flomax) 0.4 mg PO DAILY 03/15/25 03/15/25 History Allergies Allergy/AdvReac Type Severity Reaction Status Date / Time lisinopril Allergy Intermediate Swelling Verified 03/15/25 15:20 of Lip/Tongue/Throat [id number]-[id number]-[id number] Reductase AdvReac Intermediate Muscle Pain Verified 03/15/25 15:20 Inhibitor (Rxtxdfm-Ogd-Kwe Reductase Inhibitor) Exam Narrative Exam Narrative: Const General: healthy appearing, comfortable and no acute distress Orientation: alert and oriented x3 HENMT Ears: hearing grossly normal bilaterally Eyes Visual Angulo: normal visual angulo by confrontation Conjunctivae: conjunctivae normal Sclera: sclerae normal EOM: EOM intact bilaterally Resp Effort & Inspection: normal respiratory effort and able to speak in complete sentences Cardio Rate: regular rate GI Palpation: soft (NT) Extrem General: no pedal edema and no calf tenderness Assessment & Plan Assessment and plan (1) Melena: Status: Acute (2) GERD (gastroesophageal reflux disease): Qualifiers: Esophagitis presence: esophagitis presence not specified Qualified Code(s): K21.9 - Gastro-esophageal reflux disease without esophagitis Status: Acute (3) History of colon polyps: Status: Acute Plan Plan EGD to evaluate for esophagitis, hiatal hernia, Odom's, dysplasia, H pylori, PUD. The risks, benefits and options regarding the procedure were explained to the patient in detail. Risk discussion included but not limited to: bleeding, perforation, aspiration, sore throat. Plan colonoscopy, possible biopsy. The risks, benefits and options regarding the procedure were explained to the patient in detail. Risk discussion included but not limited to: bleeding, perforation, unable to reach cecum, missed lesion. The patient was encouraged to ask questions and they were answered to their satisfaction. The patient understands and is agreeable to proceed. Time-Based Coding :: [TOTAL MINUTES] spent with patient and on the chart (including review of chart, obtaining history, exam, reviewing outside data, placing orders, documenting exam and treatment plan, and counseling patient) on [DATE]. 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
[2025-04-08 10:51] VITALS: BP 174/63; PULSE 61; RESP 16; TEMP 36.6; O2SAT 99
[2025-04-08] MEDS: LACTATED RINGERS 1,000 ML 42 ML IV (11:14)
--- NOTE | 2025-04-08 11:16 | PM.OP.EC ---
Operative Date/Time/Diagnoses Date of procedure: 04/08/25 Time of procedure: 11:53 Pre-op diagnosis: Melena, h/o esophagitis, colon polyps Post-op diagnosis: same (see note) Procedure & Clinicians Study performed: EGD with biopsy, colonoscopy with polypectomy Same procedure(s) as scheduled: Yes Indications: 79yo M, h/o melena, esophagitis, tubular adenomas, hemorrhoids Surgeon: Harvey Cantor Anesthesia Type: MAC +/- Procedure Notes SCOAP/Timeout: Performed Procedure in detail: EGD Informed consent was obtained. The procedure, its risks, benefits, and alternatives were discussed. Patient understood and agreed to proceed. The patient was placed in the left lateral decubitus position with head elevated. Sedation given per anesthesia. The video endoscope was inserted into the oropharynx and guided under direct vision into the esophagus, stomach, and duodenum which were carefully examined. The scope was retroflexed to examine the hiatus and gastroesophageal junction. Antral biopsies were obtained for Helicobacter pylori. The patient tolerated the procedure very well. There were no apparent complications. Significant EGD findings: Z-line noted at: 45cm LA Grade A esophagitis biopsied No hiatal hernia Moderate gastritis in antrum and body of stomach, biopsied; mucosal appearance of portal gastropathy Duodenum normal Colonoscopy Patient placed in left lateral recumbent position. Time out was performed. Procedural sedation was administered by anesthesia. Examination began with a thorough inspection of the perianal area. There was no evidence of fissures, fistulae, external hemorrhoids or cutaneous malignancy. The colonoscope was then placed into the rectum and the lumen was insufflated with carbon dioxide. The scope was carefully advanced forward. Ultimately the cecum was intubated and confirmed by identification of the ileocecal valve, the appendiceal orifice and the confluence of the taenia. The scope was then slowly withdrawn examining the colon thoroughly in all directions. In the rectum, retroflexion of the scope was performed for inspection of the distal rectum and anal canal. ?Significant colonoscopy findings: ?1. Quality of the preparation-good, Artemus 2-3, improved with irrigation/suction ?2. Sigmoid diverticulosis 3. Ascending colon polyp, 3mm, sessile, benign appearing, removed with cold snare and retrieved for pathology Scope withdrawal time: 7 minutes Findings: diverticulosis and gastritis Specimen(s): other (biopsies) Estimated Blood Loss: 5 Complications: none Impression: Gastritis Esophagitis Colon polyp Diverticulosis Post-procedure Recommendations: Colonscopy in 5 years Plan for aftercare: PACU then home Follow up: as needed Disposition: PACU
[2025-04-08 11:56] VITALS: BP 179/77; PULSE 63; RESP 15; TEMP 36.6; O2SAT 96
== END 2025-04-08 12:23 | disposition home or self-care (01) ==
PROVIDERS: PCP Family Medicine; Referring Provider Surgery; Visit Provider Surgery
PROC: 0DJ08ZZ Inspection of Upper Intestinal Tract, Via Natural or Artificial Opening Endoscopic (ICD-10-PCS; CPT 45385; principal; 2025-04-08 11:00)
PROC: 0DJD8ZZ Inspection of Lower Intestinal Tract, Via Natural or Artificial Opening Endoscopic (ICD-10-PCS; CPT 45378; 2025-04-08 11:00)
DX: K92.1 Melena (principal); Z87.19 Personal history of other diseases of the digestive system; Z86.0101 Personal history of adenomatous and serrated colon polyps; K29.70 Gastritis, unspecified, without bleeding; K20.90 Esophagitis, unspecified without bleeding; K57.30 Diverticulosis of large intestine without perforation or abscess without bleeding; K29.50 Unspecified chronic gastritis without bleeding; D12.2 Benign neoplasm of ascending colon
CPT/HCPCS: 45385; 43239; J2704; J7120